=== PATIENT | female | born 1965 | race Caucasian/White ===

== ENCOUNTER 2020-07-26 18:38 | Inpatient (IN) ==
[2020-07-26 20:06] LABS: Basophils # (auto) 0.01 K/uL (0-0.2); Basophils % (auto) 0.1 %; Eosinophils # (auto) 0.07 K/uL (0-0.5); Hematocrit (blood only) 38.7 % (37-47); Hemoglobin 11.9 g/dL (12.0-16.0); Immature Granulocytes # (auto) 0.02 K/uL (0.00-0.02); Immature Granulocytes % (auto) 0.3 %; Lymphocytes # (auto) 1.91 K/uL (1.2-3.4); Lymphocytes % (auto) 26.8 %; Mean Corpuscular Hemoglobin 30.7 pg (25-34); Mean Corpuscular Hgb Conc 30.7 g/dL (32-36); Mean Platelet Volume 10.8 fL (7.4-10.4); Monocytes # (auto) 0.56 K/uL (0.11-0.59); Monocytes % (auto) 7.9 %; Neutrophils # (auto) 4.56 K/uL (1.4-6.5); Neutrophils % (auto) 63.9 %; Platelet Count 177 K/uL (130-400); RDW Coefficient of Variation 12.7 % (11.5-14.5); RDW Standard Deviation 45.9 fL (36.4-46.3); Red Blood Count 3.87 M/uL (4.2-5.4); White Blood Count 7.13 K/uL (4.8-10.8)
[2020-07-26 20:18] LABS: Bilirubin,Total 0.4 mg/dl (0.2-1)
[2020-07-26 20:19] LABS: Alanine Aminotransferase 22 U/L (12-78); Albumin Globulin Ratio 0.8 (0.9-2); Albumin Level 3.8 gm/dl (3.4-5.0); Alkaline Phosphatase 94 U/L (45-117); Aspartate Aminotransferase 13 U/L (15-37); BUN Creatinine Ratio 32.4 (10-20); Blood Urea Nitrogen 26 mg/dl (7-18); Calcium 9.5 mg/dl (8.5-10.1); Carbon Dioxide 42 mmol/L (21-32); Chloride 97 mmol/L (98-107); Creatinine Clr Calc Pharmacy 74.3 ml/min; Est GFR (African American) 93.4 ml/min; Est GFR (Non-African American) 80.6 ml/min; Globulin 4.6 gm/dl (2.5-4.0); Glucose 133 mg/dl (70-99); Potassium 3.3 mmol/L (3.5-5.1); Sodium 140 mmol/L (136-145); Total Protein 8.4 gm/dl (6.4-8.2)
[2020-07-26 20:22] LABS: Partial Thromboplastin Ratio 0.9; Partial Thromboplastin Time 24.9 Seconds (21.0-31.0); Prothrombin Time 10.2 Seconds (9.0-12.0)
--- NOTE | 2020-07-26 21:02 | Emergency Department Note ---
History of Present Illness General Chief complaint: Abnormal Labs/Diagnostic Testing Stated complaint: ABNORMAL LAB WORK Time Seen by Provider: 07/26/20 20:08 Source: patient Mode of arrival: ambulatory Limitations: no limitations History of Present Illness Provider complaint: Abnormal outpatient labs This is a 55-year-old female who comes the emergency department at the recommendation of her outpatient providers due to concern for abnormal outpatient labs drawn last week. Patient with chronic pulmonary issues and does follow with pulmonology. States she had routine blood work performed last week and had seen her regular PCP. Patient denies noting any new or evolving symptoms and states she is otherwise feeling in her usual state of health. Patient does wear chronic oxygen and uses CPAP at night. Patient denies any known sick contact, no recent change in her medications. Patient states she was contacted today and told she needed to come emergently to the emergency room due to an elevated carbon dioxide level. Patient states she has been told that this level was elevated in the past and it is unclear to her why this is now an acute emergency. Patient states there have been no other changes to her home oxygen or CPAP settings. Patient denies any recent respiratory illness or infection. Pt seen during a time of high acuity and national emergency pandemic while wearing PPE. Home Medications Medication Instructions Recorded Confirmed Type Vitron-C 1 tab PO [id number] 05/29/18 07/26/20 History albuterol sulfate 2.5 mg INHALATION Q4 PRN 05/29/18 07/26/20 History ambrisentan 10 mg PO QAM 05/29/18 07/26/20 History ammonium lactate 1 applic TOPICAL BID PRN 05/29/18 07/26/20 History atorvastatin 20 mg PO QAM 05/29/18 07/26/20 History cholecalciferol (vitamin D3) 3 cap PO QAM 05/29/18 07/26/20 History diclofenac sodium [Voltaren] 2 g TOPICAL QID PRN 05/29/18 07/26/20 History docusate sodium [Colace] 100 mg PO QAM 05/29/18 07/26/20 History fluticasone propionate [Flonase 2 spray INTRANASAL DAILY PRN 05/29/18 07/26/20 History Allergy Relief] furosemide 20 mg PO QAM 05/29/18 07/26/20 History hydrocortisone 1 applic TOPICAL BID PRN 05/29/18 07/26/20 History loratadine 10 mg PO QAM 05/29/18 07/26/20 History metoprolol tartrate 25 mg PO BID 05/29/18 07/26/20 History prednisone 5 mg PO QAM 05/29/18 07/26/20 History sildenafil (pulm.hypertension) 20 mg PO TID 05/29/18 07/26/20 History [Revatio] spironolactone 50 mg PO QAM 05/29/18 07/26/20 History triamcinolone acetonide 1 applic TOPICAL BID PRN 05/29/18 07/26/20 History levothyroxine 112 mcg PO DAILYBB 07/26/20 07/26/20 History Allergies Allergy/AdvReac Type Severity Reaction Status Date / Time chlorhexidine Allergy Mild BURNING, Verified 07/26/20 19:42 STINGING, RED RASH aspirin Allergy Unknown AVOIDS Verified 07/26/20 19:42 SECONDARY TO MEDS/MEDICAL CONDITIONS TIGIST Inhibitors AdvReac Intermediate SEVERE Verified 07/26/20 19:42 COUGH NSAIDS (Non-Steroidal AdvReac Unknown AVOIDS Verified 07/26/20 19:42 Anti-Inflamma SECONDARY TO MEDS/MEDICAL CONDITIONS Past Med/Surg History Medical History (Updated 07/28/20 @ 02:02 by Cecilia Leslie DO) Anemia Chronic cor pulmonale Chronic respiratory failure with hypoxia Congestive heart failure GERD (gastroesophageal reflux disease) History of central line-associated bloodstream infection (CLABSI) History of end stage renal disease "acute"--on dialysis for awhile after central line infection, no issues now Hyperlipidemia Hypertension Hypothyroidism Migraine On home oxygen therapy continuous--3-4L during the day and 3L at night Osteoarthritis Polymyositis Poor historian Restrictive lung disease Sleep apnea bipap with 3L Surgical History History of cardiac cath --no stents History of colonoscopy History of tooth extraction Status post insertion of dialysis catheter removed after renal disease resolved Status post PICC central line placement Family History Mother Family history of reaction to anesthesia difficulty waking, nausea/vomiting Family history of diabetes mellitus Sister Family history of diabetes mellitus Social History Smoking Status: Never smoker Second Hand Exposure: No; Hx Alcohol Use: No Hx Substance Use: No Preferred Language: Haitian Communication Ability: Effective Registration Specialist Required: No Beliefs That Will Affect Care: None marital status: Single Current Living Situation: Family Current Living Situation Comment: Lives with father Feels Safe at Home: Yes Assistive Devices: Cane, Glasses and Walker Review of Systems See HPI for pertinent positives & negatives. and A total of 10 systems reviewed and were otherwise negative Physical Exam Vital Signs Vital Signs - 24 hr 07/26/20 18:40 07/26/20 20:25 07/26/20 20:28 Temperature 36.1 C L Temperature Source Temporal Artery Scan Pulse Rate 99 H 99 H 99 H Pulse Rate from SpO2 Sensor 99 H 99 H Respiratory Rate 22 39 H 19 Blood Pressure 141/78 H 125/79 Blood Pressure Mean 99 94 Pulse Oximetry 100 100 100 Oxygen Delivery Method Nasal Cannula Oxygen Flow Rate 2 Sepsis Recent Fever Within 48 Hours No Sepsis New/Unexplained Change in Mental Status No Sepsis Action Taken by Nursing No Action Required 07/26/20 20:30 07/26/20 21:00 Temperature Temperature Source Pulse Rate 97 H 97 H Pulse Rate from SpO2 Sensor 99 H 98 H Respiratory Rate 27 H 21 Blood Pressure Blood Pressure Mean Pulse Oximetry 100 100 Oxygen Delivery Method Oxygen Flow Rate Sepsis Recent Fever Within 48 Hours Sepsis New/Unexplained Change in Mental Status Sepsis Action Taken by Nursing GENERAL: alert, well appearing, well nourished, no distress, non-toxic, oxygen via NC EYE EXAM: normal conjunctiva, PERRL and EOM's grossly intact OROPHARYNX: no exudate, no erythema, lips, buccal mucosa, and tongue normal and mucous membranes are moist NECK: supple, no nuchal rigidity, no adenopathy, non-tender LUNGS: Clear to auscultation. Normal chest wall mechanics, no w/r/r HEART: no murmurs, S1 normal and S2 normal ABDOMEN: abdomen soft, non-tender, normo-active bowel sounds, no masses, no rebound or guarding. BACK: Back is symmetrical on inspection and there is no deformity, no midline tenderness, no CVA tenderness. SKIN: no rashes and no bruising UPPER EXTREMITIES: upper extremities are grossly normal. FROM, nml pulses b/l. LOWER EXTREMITIES: No pitting edema. FROM, nml pulses b/l. NEURO EXAM: Normal sensorium, cranial nerves II-XII grossly intact, normal speech, no gross weakness of arms, no gross weakness of legs. Gross sensation intact. Course Course 2209: Patient updated on ABG and on notes is reviewed through [facility] records. Patient in agreement with suggested plan for admission on BiPAP which was suggested by her landscape architecture teacher. 2220: Discussed with Dr. Coats. Administered Medications Atorvastatin Calcium (Atorvastatin 20 Mg Tab) 20 mg PO [facility] Stop: 08/26/20 08:59 Last Admin: 07/27/20 08:27 Dose: 20 mg Documented by: [id number] Docusate Sodium (Docusate Sodium 100 Mg Cap) 100 mg PO [facility] Stop: 08/26/20 08:59 Last Admin: 07/27/20 08:28 Dose: 100 mg Documented by: [id number] Enoxaparin Sodium (Enoxaparin Inj 40 Mg/0.4 Ml Syr) 40 mg SQ [facility] Stop: 08/26/20 08:59 Last Admin: 07/27/20 08:28 Dose: 40 mg Documented by: [id number] Furosemide (Furosemide 20 Mg Tab) 20 mg PO [facility] Stop: 08/26/20 08:59 Last Admin: 07/27/20 08:27 Dose: 20 mg Documented by: [id number] Levothyroxine Sodium (Levothyroxine Sodium 112 Mcg Tablet) 112 mcg PO DAILYBB [facility] Stop: 08/26/20 06:29 Last Admin: 07/27/20 06:13 Dose: 112 mcg Documented by: [id number] Loratadine (Loratadine 10 Mg Tab) 10 mg PO [facility] Stop: 08/26/20 08:59 Last Admin: 07/27/20 08:27 Dose: 10 mg Documented by: [id number] Metoprolol Tartrate (Metoprolol Tartrate 25 Mg Tab) 25 mg PO BID [facility] Stop: 08/25/20 23:29 Last Admin: 07/27/20 20:52 Dose: 25 mg Documented by: [id number] Admin: 07/27/20 10:35 Dose: Not Given Documented by: [id number] Admin: 07/27/20 00:58 Dose: 25 mg Documented by: [id number] Miscellaneous (Ambrisentan: Order Awaiting Action) 1 ea N/A QS [facility] Stop: 08/26/20 07:59 Last Admin: 07/27/20 22:41 Dose: Not Given Documented by: [id number] Admin: 07/27/20 14:40 Dose: Not Given Documented by: [id number] Admin: 07/27/20 08:06 Dose: Not Given Documented by: [id number] Potassium Chloride (Potassium Chloride Crtab 20 Meq Tabcr) 20 meq PO BID [facility] Stop: 08/26/20 08:59 Last Admin: 07/27/20 20:52 Dose: 20 meq Documented by: [id number] Admin: 07/27/20 08:27 Dose: 20 meq Documented by: [id number] Prednisone (Prednisone 5 Mg Tab) 5 mg PO QAM [facility] Stop: 08/26/20 08:59 Last Admin: 07/27/20 10:37 Dose: 5 mg Documented by: [id number] Sildenafil Citrate (Sildenafil Citrate 20 Mg Tablet) 20 mg PO TID [facility] Stop: 08/26/20 08:59 Last Admin: 07/27/20 20:52 Dose: 20 mg Documented by: [id number] Admin: 07/27/20 15:56 Dose: 20 mg Documented by: [id number] Admin: 07/27/20 08:28 Dose: 20 mg Documented by: [id number] Spironolactone (Spironolactone 25 Mg Tab) 50 mg PO QAM [facility] Stop: 08/26/20 08:59 Last Admin: 07/27/20 08:28 Dose: 50 mg Documented by: [id number] Discontinued Medications Potassium Chloride (Potassium Chloride Crtab 20 Meq Tabcr) 40 meq PO NOW [facility] Stop: 07/26/20 22:32 Last Admin: 07/26/20 23:16 Dose: 40 meq Documented by: [id number] Medical Decision Making Differential Diagnosis Differential diagnoses includes but is not limited to pneumonia, bronchitis, COPD/Asthma exacerbation, pneumothorax, pulmonary embolism, congestive heart failure, acute coronary syndrome Medical Records Attestation: I reviewed the patient's medical records. Home Medications Current Medication List: was personally reviewed by me Laboratory Data Attestation: I reviewed the patient's lab results. Result diagrams: 07/27/20 05:35 07/27/20 05:35 Lab Results 07/26/20 07/26/20 07/26/20 Range/Units 18:55 18:55 18:55 WBC 7.13 (4.8-10.8) K/uL RBC 3.87 L (4.2-5.4) M/uL Hgb 11.9 L (12.0-16.0) g/dL Hct 38.7 (37-47) % MCV 100.0 (80-100) fL MCH 30.7 (25-34) pg MCHC 30.7 L (32-36) g/dL RDW Std Deviation 45.9 (36.4-46.3) fL RDW Coeff of David 12.7 (11.5-14.5) % Plt Count 177 (130-400) K/uL MPV 10.8 H (7.4-10.4) fL Immature Gran % (Auto) 0.3 % Neut % (Auto) 63.9 % Lymph % (Auto) 26.8 % Sullivan % (Auto) 7.9 % Eos % (Auto) 1.0 % Baso % (Auto) 0.1 % Neut # (Auto) 4.56 (1.4-6.5) K/uL Lymph # (Auto) 1.91 (1.2-3.4) K/uL Sullivan # (Auto) 0.56 (0.11-0.59) K/uL Eos # (Auto) 0.07 (0-0.5) K/uL Baso # (Auto) 0.01 (0-0.2) K/uL Immature Gran # (Auto) 0.02 (0.00-0.02) K/uL PT 10.2 (9.0-12.0) Seconds INR 1.0 (0.9-1.1) APTT 24.9 (21.0-31.0) Seconds PTT Ratio 0.9 ABG pH (7.35-7.45) ABG pCO2 (35-46) mmHg ABG pO2 (80-95) mmHg ABG HCO3 (19-24) mmol/L ABG O2 Saturation (90-95) % ABG Base Excess (-9-1.8) mEq/L Slick Test (Pos) Barometric Pressure mm/Hg Oxygen Given Sodium 140 (136-145) mmol/L Potassium 3.3 L (3.5-5.1) mmol/L Chloride 97 L (98-107) mmol/L Carbon Dioxide 42 H* (21-32) mmol/L Anion Gap 1.0 L (3-11) BUN 26 H (7-18) mg/dl Creatinine 0.81 (0.6-1.2) mg/dl Est Cr Clr Drug Dosing 74.3 ml/min Est GFR ( Amer) 93.4 ml/min Est GFR (Non-Af Amer) 80.6 ml/min BUN/Creatinine Ratio 32.4 H (10-20) Glucose 133 H (70-99) mg/dl Estimat Average Glucose mg/dl Hemoglobin A1c (4.5-5.6) % Calcium 9.5 (8.5-10.1) mg/dl Magnesium 2.0 (1.8-2.4) mg/dl Total Bilirubin 0.4 (0.2-1) mg/dl AST 13 L (15-37) U/L ALT 22 (12-78) U/L Alkaline Phosphatase 94 (45-117) U/L NT-Pro-B Natriuret Pep 472 (0-900) pg/ml Total Protein 8.4 H (6.4-8.2) gm/dl Albumin 3.8 (3.4-5.0) gm/dl Globulin 4.6 H (2.5-4.0) gm/dl Albumin/Globulin Ratio 0.8 L (0.9-2) TSH < 0.005 L (0.300-4.500) uIu/ml Free T4 1.21 (0.8-1.6) ng/dl COVID-19 Eval Order SARS-CoV-2 (PCR) (Negative) 07/26/20 07/26/20 07/26/20 Range/Units 18:55 21:38 22:27 WBC (4.8-10.8) K/uL RBC (4.2-5.4) M/uL Hgb (12.0-16.0) g/dL Hct (37-47) % MCV (80-100) fL MCH (25-34) pg MCHC (32-36) g/dL RDW Std Deviation (36.4-46.3) fL RDW Coeff of David (11.5-14.5) % Plt Count (130-400) K/uL MPV (7.4-10.4) fL Immature Gran % (Auto) % Neut % (Auto) % Lymph % (Auto) % Sullivan % (Auto) % Eos % (Auto) % Baso % (Auto) % Neut # (Auto) (1.4-6.5) K/uL Lymph # (Auto) (1.2-3.4) K/uL Sullivan # (Auto) (0.11-0.59) K/uL Eos # (Auto) (0-0.5) K/uL Baso # (Auto) (0-0.2) K/uL Immature Gran # (Auto) (0.00-0.02) K/uL PT (9.0-12.0) Seconds INR (0.9-1.1) APTT (21.0-31.0) Seconds PTT Ratio ABG pH 7.30 L (7.35-7.45) ABG pCO2 87 H (35-46) mmHg ABG pO2 96 H (80-95) mmHg ABG HCO3 42 H (19-24) mmol/L ABG O2 Saturation 96.1 H (90-95) % ABG Base Excess 12.7 H (-9-1.8) mEq/L Slick Test Pos (Pos) Barometric Pressure 724.6 mm/Hg Oxygen Given 2L Sodium (136-145) mmol/L Potassium (3.5-5.1) mmol/L Chloride (98-107) mmol/L Carbon Dioxide (21-32) mmol/L Anion Gap (3-11) BUN (7-18) mg/dl Creatinine (0.6-1.2) mg/dl Est Cr Clr Drug Dosing ml/min Est GFR ( Amer) ml/min Est GFR (Non-Af Amer) ml/min BUN/Creatinine Ratio (10-20) Glucose (70-99) mg/dl Estimat Average Glucose 114 mg/dl Hemoglobin A1c 5.6 (4.5-5.6) % Calcium (8.5-10.1) mg/dl Magnesium (1.8-2.4) mg/dl Total Bilirubin (0.2-1) mg/dl AST (15-37) U/L ALT (12-78) U/L Alkaline Phosphatase (45-117) U/L NT-Pro-B Natriuret Pep (0-900) pg/ml Total Protein (6.4-8.2) gm/dl Albumin (3.4-5.0) gm/dl Globulin (2.5-4.0) gm/dl Albumin/Globulin Ratio (0.9-2) TSH (0.300-4.500) uIu/ml Free T4 (0.8-1.6) ng/dl COVID-19 Eval Order Covid19 at [facility] SARS-CoV-2 (PCR) (Negative) 07/26/20 Range/Units 22:27 WBC (4.8-10.8) K/uL RBC (4.2-5.4) M/uL Hgb (12.0-16.0) g/dL Hct (37-47) % MCV (80-100) fL MCH (25-34) pg MCHC (32-36) g/dL RDW Std Deviation (36.4-46.3) fL RDW Coeff of David (11.5-14.5) % Plt Count (130-400) K/uL MPV (7.4-10.4) fL Immature Gran % (Auto) % Neut % (Auto) % Lymph % (Auto) % Sullivan % (Auto) % Eos % (Auto) % Baso % (Auto) % Neut # (Auto) (1.4-6.5) K/uL Lymph # (Auto) (1.2-3.4) K/uL Sullivan # (Auto) (0.11-0.59) K/uL Eos # (Auto) (0-0.5) K/uL Baso # (Auto) (0-0.2) K/uL Immature Gran # (Auto) (0.00-0.02) K/uL PT (9.0-12.0) Seconds INR (0.9-1.1) APTT (21.0-31.0) Seconds PTT Ratio ABG pH (7.35-7.45) ABG pCO2 (35-46) mmHg ABG pO2 (80-95) mmHg ABG HCO3 (19-24) mmol/L ABG O2 Saturation (90-95) % ABG Base Excess (-9-1.8) mEq/L Slick Test (Pos) Barometric Pressure mm/Hg Oxygen Given Sodium (136-145) mmol/L Potassium (3.5-5.1) mmol/L Chloride (98-107) mmol/L Carbon Dioxide (21-32) mmol/L Anion Gap (3-11) BUN (7-18) mg/dl Creatinine (0.6-1.2) mg/dl Est Cr Clr Drug Dosing ml/min Est GFR ( Amer) ml/min Est GFR (Non-Af Amer) ml/min BUN/Creatinine Ratio (10-20) Glucose (70-99) mg/dl Estimat Average Glucose mg/dl Hemoglobin A1c (4.5-5.6) % Calcium (8.5-10.1) mg/dl Magnesium (1.8-2.4) mg/dl Total Bilirubin (0.2-1) mg/dl AST (15-37) U/L ALT (12-78) U/L Alkaline Phosphatase (45-117) U/L NT-Pro-B Natriuret Pep (0-900) pg/ml Total Protein (6.4-8.2) gm/dl Albumin (3.4-5.0) gm/dl Globulin (2.5-4.0) gm/dl Albumin/Globulin Ratio (0.9-2) TSH (0.300-4.500) uIu/ml Free T4 (0.8-1.6) ng/dl COVID-19 Eval Order SARS-CoV-2 (PCR) NEGATIVE (Negative) Imaging Data My Impression: X-ray: I interpreted the following studies. Chest: A single view study of the chest was reviewed and was negative for cardiomegaly, focal infiltrate, effusion, pulmonary edema, or wide mediastinum. MDM Narrative This is a 55-year female who presents due to abnormal outpatient labs. Patient with several chronic and ongoing medical problems for which she does follow with a landscape architecture teacher in addition to her PCP. I did review her outpatient chemistry panel from last week and she does have a chronically elevated carbon dioxide level. With assistance of case management and obtaining records, I was able to review prior labs as well as notes from her PCP and an accompanying note from her landscape architecture teacher Dr. Darby. According to those records it was recommended that she come to the emergency room and be placed on BiPAP and a repeat ABG obtained. We did obtain an ABG here and it did show an elevated PCO2. Patient denies any new or evolving symptoms, I did offer her additional inpatient treatment and evaluation given the recommendation of her landscape architecture teacher versus going home and close outpatient follow-up. Patient agreement with plan to initiate BiPAP therapy here. I did call RT and discussed with him the recommendations made by the landscape architecture teacher. Case discussed with hospitalist for additional evaluation and management. Covid swab added and chest x-ray performed as a precaution which are unremarkable. Other labs reassuring and chronic in appearance. Impression & Plan Acute and chronic respiratory failure with hypercapnia, Chronic respiratory failure with hypoxia, on home O2 therapy Discharge Plan Visit Data Chief Complaint: Abnormal Labs/Diagnostic Testing Stated Complaint: ABNORMAL LAB WORK ED Provider: Cecilia Leslie Discharge Problem: Acute and chronic respiratory failure with hypercapnia, Chronic respiratory failure with hypoxia, on home O2 therapy Patient Disposition: Admitted As Inpatient Discharge Instructions Interventions: ED Discharge Assessment Last Done: 07/27/20 01:20
[2020-07-26 21:57] LABS: Allen Test Pos (Pos); Base Excess ABG 12.7 mEq/L (-9-1.8); HCO3 ABG 42 mmol/L (19-24); Oxygen Saturation ABG 96.1 % (90-95); PCO2 ABG 87 mmHg (35-46); PO2 ABG 96 mmHg (80-95)
[2020-07-26] MEDS ORDERED: POTASSIUM CHLORIDE CRTAB 20 MEQ TABCR PO STA (22:31)
--- NOTE | 2020-07-26 23:34 | History & Physical Report ---
Date of Service July 26, 2020 Assessment & Plan (1) Acute and chronic respiratory failure with hypercapnia: hx chronic hypoxemic/hypercapnic respiratory failure secondary to pulmonary arterial hypertension on the Letairis/Revatio restrictive lung disease/history diaphragm paralysis on home O2 and nocturnal BiPAP Marked respiratory acidosis on outpatient VBG requested by patient [facility] [place] pickled fruit maker almost 2 weeks ago. Patient pulmonary symptoms at baseline. hx 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 steroid therapy Rathke's cleft cyst as per records, stable on recent outpatient MRI chronic anemia, hemoglobin at baseline hypothyroidism, low TSH from outpatient blood work hyperlipidemia on statin Rx prediabetes/steroid-induced hyperglycemia, hemoglobin A1c of 6 from November 2019 Hypokalemia secondary diuretic Rx OBS Medical telemetry BiPAP (13/5 at 2L as per patient sweet pickled fruit maker (Dr. Bowie) conversation with ED provider) Recheck ABG in a.m. and relay to sweet pickled fruit maker. Replace potassium Recheck TSH, update hemoglobin A1c DVT prophylaxis. Lovenox subcu Full code Text document was generated using [employer] voice recognition software. It may contain grammatical or spelling errors. Kindly contact undersigned for clarification of any documentation item in question. History of Present Illness To be Chief Complaint: Abnormal blood work Primary Care Provider: Willi Torres MD History obtained from patient and records. Medical history significant for chronic hypoxemic/hypercapnic respiratory failure secondary to pulmonary arterial hypertension on the Letairis/Revatio on home O2 and nocturnal BiPAP, 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 steroid therapy, restrictive lung disease/history diaphragm paralysis, Rathke's cleft cyst as per records, chronic anemia (baseline hemoglobin of 11 ), hypothyroidism, hyperlipidemia, prediabetes. Patient met with [facility] sweet pickled fruit maker on televideo follow-up 3 weeks ago. Uptrending bicarb noted on outpatient blood work. Outpatient VBG requested by specialist. Outpatient VBG done at [facility] 10 days ago showed pH of 7.23, PCO2 113. Patient denies unusual chest pain, S OB, cough symptoms. Usual fluid retention symptoms. Patient directed to ER by outpatient providers. BiPAP to be initiated at the ER as per [facility] sweet pickled fruit maker. Medical History as above Surgical History : Tracheostomy, vascular procedures Family History : Breast cancer, DM, heart disease Personal/Social history : Non-smoker, no EtOH intake, disabled Allergies Allergy/AdvReac Type Severity Reaction Status Date / Time chlorhexidine Allergy Mild BURNING, Verified 07/26/20 19:42 STINGING, RED RASH aspirin Allergy Unknown AVOIDS Verified 07/26/20 19:42 SECONDARY TO MEDS/MEDICAL CONDITIONS TIGIST Inhibitors AdvReac Intermediate SEVERE Verified 07/26/20 19:42 COUGH NSAIDS (Non-Steroidal AdvReac Unknown AVOIDS Verified 07/26/20 19:42 Anti-Inflamma SECONDARY TO MEDS/MEDICAL CONDITIONS Home Medications Medication Instructions Recorded Confirmed Type Vitron-C 1 tab PO 3XWK 05/29/18 07/26/20 History albuterol sulfate 2.5 mg INHALATION Q4 PRN 05/29/18 07/26/20 History ambrisentan 10 mg PO QAM 05/29/18 07/26/20 History ammonium lactate 1 applic TOPICAL BID PRN 05/29/18 07/26/20 History atorvastatin 20 mg PO QAM 05/29/18 07/26/20 History cholecalciferol (vitamin D3) 3 cap PO QAM 05/29/18 07/26/20 History diclofenac sodium [Voltaren] 2 g TOPICAL QID PRN 05/29/18 07/26/20 History docusate sodium [Colace] 100 mg PO QAM 05/29/18 07/26/20 History fluticasone propionate [Flonase 2 spray INTRANASAL DAILY PRN 05/29/18 07/26/20 History Allergy Relief] furosemide 20 mg PO QAM 05/29/18 07/26/20 History hydrocortisone 1 applic TOPICAL BID PRN 05/29/18 07/26/20 History loratadine 10 mg PO QAM 05/29/18 07/26/20 History metoprolol tartrate 25 mg PO BID 05/29/18 07/26/20 History prednisone 5 mg PO QAM 05/29/18 07/26/20 History sildenafil (pulm.hypertension) 20 mg PO TID 05/29/18 07/26/20 History [Revatio] spironolactone 50 mg PO QAM 05/29/18 07/26/20 History triamcinolone acetonide 1 applic TOPICAL BID PRN 05/29/18 07/26/20 History levothyroxine 112 mcg PO DAILYBB 07/26/20 07/26/20 History Past Med/Surg History Medical History (Updated 07/27/20 @ 07:29 by Neftaly León MD) Anemia Chronic cor pulmonale Chronic respiratory failure with hypoxia Congestive heart failure GERD (gastroesophageal reflux disease) History of central line-associated bloodstream infection (CLABSI) History of end stage renal disease "acute"--on dialysis for awhile after central line infection, no issues now Hyperlipidemia Hypertension Hypothyroidism Migraine On home oxygen therapy continuous--3-4L during the day and 3L at night Osteoarthritis Polymyositis Poor historian Restrictive lung disease Sleep apnea bipap with 3L Surgical History History of cardiac cath --no stents History of colonoscopy History of tooth extraction Status post insertion of dialysis catheter removed after renal disease resolved Status post PICC central line placement Family History Mother Family history of reaction to anesthesia difficulty waking, nausea/vomiting Family history of diabetes mellitus Sister Family history of diabetes mellitus Social History Smoking Status: Never smoker Second Hand Exposure: No; Hx Alcohol Use: No Hx Substance Use: No Preferred Language: South African Communication Ability: Effective Lead Developer Required: No Beliefs That Will Affect Care: None Current Living Situation: Family Current Living Situation Comment: Lives with father Feels Safe at Home: Yes Assistive Devices: Cane, Glasses and Walker Review of Systems Review of Systems: As per HPI, all 10 systems reviewed, all other ROS negative Physical Exam Physical Exam: GENERAL: Comfortable, obese, no respiratory distress SKIN: Normal color, warm HEENT: Bespectacled, [place] palpebral conjunctivae, no ptosis, moist buccal mucosa, nasal cannula in place NECK : Supple, short neck, no tenderness CHEST : Decreased breath sounds, no tenderness HEART : RRR, no obvious murmurs ABDOMEN: Some distention, nontender EXTREMITIES : Bilateral LE swelling, no LE tenderness, no other conspicuous deformities noted NEUROLOGIC : Coherent, no facial asymmetry, no other gross focality Results & Data Results & Data ([facility]) Vital Signs (Past 12 Hours) Vital Signs Temp Pulse Resp BP Pulse Ox 07/26/20 21:00 97 H 21 100 07/26/20 20:30 97 H 27 H 100 07/26/20 20:28 99 H 19 100 07/26/20 20:25 99 H 39 H 125/79 100 07/26/20 18:40 36.1 C L 99 H 22 141/78 H 100 Laboratory Results Laboratory Results WBC 7.13 K/uL (4.8-10.8) 07/26/20 18:55 RBC 3.87 M/uL (4.2-5.4) L 07/26/20 18:55 Hgb 11.9 g/dL (12.0-16.0) L 07/26/20 18:55 Hct 38.7 % (37-47) 07/26/20 18:55 MCV 100.0 fL (80-100) 07/26/20 18:55 MCH 30.7 pg (25-34) 07/26/20 18:55 MCHC 30.7 g/dL (32-36) L 07/26/20 18:55 RDW Std Deviation 45.9 fL (36.4-46.3) 07/26/20 18:55 RDW Coeff of David 12.7 % (11.5-14.5) 07/26/20 18:55 Plt Count 177 K/uL (130-400) 07/26/20 18:55 MPV 10.8 fL (7.4-10.4) H 07/26/20 18:55 Immature Gran % (Auto) 0.3 % 07/26/20 18:55 Neut % (Auto) 63.9 % 07/26/20 18:55 Lymph % (Auto) 26.8 % 07/26/20 18:55 [place] % (Auto) 7.9 % 07/26/20 18:55 Eos % (Auto) 1.0 % 07/26/20 18:55 Baso % (Auto) 0.1 % 07/26/20 18:55 Neut # (Auto) 4.56 K/uL (1.4-6.5) 07/26/20 18:55 Lymph # (Auto) 1.91 K/uL (1.2-3.4) 07/26/20 18:55 [place] # (Auto) 0.56 K/uL (0.11-0.59) 07/26/20 18:55 Eos # (Auto) 0.07 K/uL (0-0.5) 07/26/20 18:55 Baso # (Auto) 0.01 K/uL (0-0.2) 07/26/20 18:55 Immature Gran # (Auto) 0.02 K/uL (0.00-0.02) 07/26/20 18:55 PT 10.2 Seconds (9.0-12.0) 07/26/20 18:55 INR 1.0 (0.9-1.1) 07/26/20 18:55 APTT 24.9 Seconds (21.0-31.0) 07/26/20 18:55 PTT Ratio 0.9 07/26/20 18:55 ABG pH 7.30 (7.35-7.45) L 07/26/20 21:38 ABG pCO2 87 mmHg (35-46) H 07/26/20 21:38 ABG pO2 96 mmHg (80-95) H 07/26/20 21:38 ABG HCO3 42 mmol/L (19-24) H 07/26/20 21:38 ABG O2 Saturation 96.1 % (90-95) H 07/26/20 21:38 ABG Base Excess 12.7 mEq/L (-9-1.8) H 07/26/20 21:38 Slick Test Pos (Pos) 07/26/20 21:38 Barometric Pressure 724.6 mm/Hg 07/26/20 21:38 Oxygen Given 2L 07/26/20 21:38 Sodium 140 mmol/L (136-145) 07/26/20 18:55 Potassium 3.3 mmol/L (3.5-5.1) L 07/26/20 18:55 Chloride 97 mmol/L (98-107) L 07/26/20 18:55 Carbon Dioxide 42 mmol/L (21-32) H* 07/26/20 18:55 Anion Gap 1.0 (3-11) L 07/26/20 18:55 BUN 26 mg/dl (7-18) H 07/26/20 18:55 Creatinine 0.81 mg/dl (0.6-1.2) 07/26/20 18:55 Est Cr Clr Drug Dosing 74.3 ml/min 07/26/20 18:55 Est GFR ( Amer) 93.4 ml/min 07/26/20 18:55 Est GFR (Non-Af Amer) 80.6 ml/min 07/26/20 18:55 BUN/Creatinine Ratio 32.4 (10-20) H 07/26/20 18:55 Glucose 133 mg/dl (70-99) H 07/26/20 18:55 Calcium 9.5 mg/dl (8.5-10.1) 07/26/20 18:55 Magnesium 2.0 mg/dl (1.8-2.4) 07/26/20 18:55 Total Bilirubin 0.4 mg/dl (0.2-1) 07/26/20 18:55 AST 13 U/L (15-37) L 07/26/20 18:55 ALT 22 U/L (12-78) 07/26/20 18:55 Alkaline Phosphatase 94 U/L (45-117) 07/26/20 18:55 Total Protein 8.4 gm/dl (6.4-8.2) H 07/26/20 18:55 Albumin 3.8 gm/dl (3.4-5.0) 07/26/20 18:55 Globulin 4.6 gm/dl (2.5-4.0) H 07/26/20 18:55 Albumin/Globulin Ratio 0.8 (0.9-2) L 07/26/20 18:55 COVID-19 Eval Order Covid19 at [facility] 07/26/20 22:27 SARS-CoV-2 (PCR) NEGATIVE (Negative) 07/26/20 22:27 Diagnostic Findings Chest x-ray as per my interpretation cardiomegaly, congestion
[2020-07-27 00:11] LABS: NT Pro B Type Natriuretic Pept 472 pg/ml (0-900); Thyroid Stimulating Hormone < 0.005 uIu/ml (0.300-4.500)
[2020-07-27 00:31] LABS: T4 Free Thyroxine 1.21 ng/dl (0.8-1.6)
[2020-07-27] MEDS: METOPROLOL TARTRATE 25 MG TAB PO SCH ×3 (00:58→20:52)
[2020-07-27] MEDS ORDERED: ALBUT/IPRATROP 3MG/0.5MG NEB 3 ML VIAL NEB PRN (01:46)
[2020-07-27] MEDS ORDERED: traMADol HCL 50 MG TABLET PO PRN (02:10)
[2020-07-27] MEDS ORDERED: XOPENEX/ATROVENT 1.25mg/0.5MG NEB COMBO NEB PRN (02:10)
[2020-07-27] MEDS ORDERED: IPRATROPIUM BROMIDE NEB SOLN 0.02% 2.5 ML VIAL INH PRN (02:10)
[2020-07-27] MEDS ORDERED: LEVALBUTEROL 1.25MG/0.5ML NEB INH PRN (02:10)
[2020-07-27] MEDS ORDERED: PROMETHAZINE HCL 12.5 MG in SODIUM CHLORIDE 0.9% 50 ML IV PRN (02:10)
[2020-07-27] MEDS ORDERED: FLUTICASONE PROPIONATE NA SPR 16 GM BTL PRN (02:10)
[2020-07-27 05:55] LABS: Base Excess ABG 12.7 mEq/L (-9-1.8); HCO3 ABG 41 mmol/L (19-24); PCO2 ABG 74 mmHg (35-46); PO2 ABG 114 mmHg (80-95); pH ABG 7.36 (7.35-7.45)
[2020-07-27 05:56] LABS: Allen Test POS (Pos)
[2020-07-27] MEDS: LEVOTHYROXINE SODIUM 112 MCG TABLET PO SCH (06:13)
[2020-07-27 06:23] LABS: Estimated Average Glucose 114 mg/dl; Hemoglobin A1C 5.6 % (4.5-5.6)
[2020-07-27 06:26] LABS: Eosinophils % (auto) 1.5 %; Hematocrit (blood only) 36.1 % (37-47); Immature Granulocytes # (auto) 0.01 K/uL (0.00-0.02); Immature Granulocytes % (auto) 0.2 %; Lymphocytes # (auto) 1.88 K/uL (1.2-3.4); Lymphocytes % (auto) 29.1 %; Mean Corpuscular Hemoglobin 30.9 pg (25-34); Mean Corpuscular Hgb Conc 30.5 g/dL (32-36); Mean Corpuscular Volume 101.4 fL (80-100); Mean Platelet Volume 10.7 fL (7.4-10.4); Monocytes # (auto) 0.51 K/uL (0.11-0.59); Monocytes % (auto) 7.9 %; Neutrophils # (auto) 3.97 K/uL (1.4-6.5); Neutrophils % (auto) 61.3 %; Platelet Count 159 K/uL (130-400); RDW Coefficient of Variation 12.6 % (11.5-14.5); RDW Standard Deviation 46.2 fL (36.4-46.3); Red Blood Count 3.56 M/uL (4.2-5.4); White Blood Count 6.47 K/uL (4.8-10.8)
[2020-07-27 07:07] LABS: BUN Creatinine Ratio 38.4 (10-20); Calcium 9.1 mg/dl (8.5-10.1); Creatinine Clr Calc Pharmacy 102.1 ml/min; Est GFR (African American) 117.9 ml/min; Est GFR (Non-African American) 101.7 ml/min; Potassium 3.9 mmol/L (3.5-5.1)
[2020-07-27] MEDS ORDERED: ACETAMINOPHEN 325 MG TAB PO PRN (07:16)
--- NOTE | 2020-07-27 08:18 | XRay Report ---
SINGLE VIEW CHEST CLINICAL HISTORY: Dyspnea. FINDINGS: 2 AP, portable, upright chest radiographs are compared to study dated 08/10/2015. The heart i s enlarged. There is prominence of the pulmonary vasculature. There is chronic elevation of the right hemidiaphragm with atelectasis of the right lower lung. Atelectasis is also seen at the left lung ba se. No airspace consolidation or large pleural effusion is identified. No pneumothorax is seen. The s keletal structures are osteopenic. The bony thorax is grossly intact. IMPRESSION: 1. Cardiomegaly with prominence of the pulmonary vasculature. Correlate clinically for evidence of mi ld congestive change. 2. No airspace consolidation or large pleural effusion is identified. ACT 112: Negative or not required by law. Electronically signed by: Philippe Navarro M.D. 07/27/2020 8:17 AM
[2020-07-27] MEDS: LORATADINE 10 MG TAB PO SCH (08:27)
[2020-07-27] MEDS: ATORVASTATIN 20 MG TAB PO SCH (08:27)
[2020-07-27] MEDS: FUROSEMIDE 20 MG TAB PO SCH (08:27)
[2020-07-27] MEDS: POTASSIUM CHLORIDE CRTAB 20 MEQ TABCR PO SCH ×2 (08:27→20:52)
[2020-07-27] MEDS: ENOXAPARIN INJ 40 MG/0.4 ML SYR SQ SCH (08:28)
[2020-07-27] MEDS: SILDENAFIL CITRATE 20 MG TABLET PO SCH ×3 (08:28→20:52)
[2020-07-27] MEDS: DOCUSATE SODIUM 100 MG CAP PO SCH (08:28)
[2020-07-27] MEDS: SPIRONOLACTONE 25 MG TAB PO SCH (08:28)
--- NOTE | 2020-07-27 10:10 | Hospitalist Progress Note ---
Date of Service July 27, 2020 Assessment & Plan (1) Acute and chronic respiratory failure with hypercapnia: hx chronic hypoxemic/hypercapnic respiratory failure secondary to pulmonary arterial hypertension on the Letairis/Revatio restrictive lung disease/history diaphragm paralysis on home O2 and nocturnal BiPAP-She doesn't know how to adjust settings and sometimes falls asleep wo being on BIPAP Marked respiratory acidosis on outpatient VBG requested by [place] [facility] [place] branding machine operator almost 2 weeks ago. Patient pulmonary symptoms at baseline. hx 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 steroid therapy Rathke's cleft cyst as per records, stable on recent outpatient MRI chronic anemia, hemoglobin at baseline hypothyroidism, low TSH from outpatient blood work hyperlipidemia on statin Rx prediabetes/steroid-induced hyperglycemia, hemoglobin A1c of 6 from November 2019 Hypokalemia secondary diuretic Rx OBS Medical telemetry BiPAP (17/06 at 2L as per patient branding machine operator (Dr. Muna Bowie) conversation with ED provider) ABG relayed to branding machine operator. PCO2 87-->74 Replace potassium DVT prophylaxis. Lovenox subcu Full code ROS-No Headache, No Visual Changes, No Nausea, No Vomiting, No Fever, No Chills, No Neck Pain or Stiffness, No Chest Pain, No Palpitations, No SOB, No SILVERMAN, No Cough, No Sputum, No Wheezing, No Abdominal Pain, No Diarrhea, No Hematemesis, No Hemoptysis, No Unexpected Weight Loss, No Flank pain, No Melena, No Hematochezia, No Frequency, No Urgency, No Burning, No Hematuria, No Rashes, No Diaphoresis. Appetite is Normal Physical Exam Gen-AAO x 3, NAD, Afebrile Head-NCAT, EOMI, PERRLA, Anicteric Sclera, No Posterior Pharyngeal Erythema Neck-Supple, No JVD, No Thyromegaly, No Masses, No LAD, No Bruits Lungs-Clear to Auscultation Bilaterally, No Rales, No Rhonchi, No Wheezing, No Crepitus Chest-No S4, +S1, +S2, No S3, No Murmurs, No Rubs, No Gallops, No Ectopy Abdomen-Soft, Bowel Sounds Present, Non Tender, Non Distended, No Hepatomegaly, No Splenomegaly, No Palpable Masses, No Rebound, No Rigidity, No Guarding Musculoskeletal-Full Range of Motion Bilaterally, No CVAT Extremities-No Cyanosis, No Clubbing, No Edema Nuero-Cranial Nerves II-XII grossly intact, Motor WNL, DTRs WNL, Strength WNL, Non Focal Psych-Normal Mood Admission and Anticipated Discharge Date Admission Date: July 26, 2020 Results & Data Results & Data ([facility]) Vital Signs (Past 12 Hours) Vital Signs Temp Pulse Pulse Resp BP BP BP 07/27/20 09:48 81 07/27/20 07:18 37.3 C 82 22 97/57 L 07/27/20 05:09 36.1 C L 81 18 91/54 L 07/27/20 04:47 76 23 07/27/20 02:16 36.6 C 78 87 18 124/71 07/27/20 01:29 78 30 H 07/27/20 01:01 101 H 26 H 123/68 07/27/20 01:00 99 H 24 07/27/20 00:31 100 H 26 H 07/27/20 00:30 99 H 25 H 129/79 07/27/20 00:00 96 H 22 106/71 07/26/20 23:43 98 H 25 H 07/26/20 23:30 97 H 21 127/80 07/26/20 23:20 97 H 24 143/86 H 07/26/20 23:00 98 H 25 H Pulse Ox 07/27/20 09:48 07/27/20 07:18 95 07/27/20 05:09 88 L 07/27/20 04:47 96 07/27/20 02:16 97 07/27/20 01:29 98 07/27/20 01:01 94 07/27/20 01:00 07/27/20 00:31 100 07/27/20 00:30 100 07/27/20 00:00 97 07/26/20 23:43 97 07/26/20 23:30 07/26/20 23:20 98 07/26/20 23:00 100
[2020-07-27] MEDS: predniSONE 5 MG TAB PO SCH (10:37)
[2020-07-28] MEDS: LEVOTHYROXINE SODIUM 112 MCG TABLET PO SCH (05:31)
[2020-07-28 08:04] LABS: Hematocrit (blood only) 36.6 % (37-47); Hemoglobin 11.1 g/dL (12.0-16.0); Mean Corpuscular Hemoglobin 31.2 pg (25-34); Mean Corpuscular Hgb Conc 30.3 g/dL (32-36); Mean Corpuscular Volume 102.8 fL (80-100); Mean Platelet Volume 10.5 fL (7.4-10.4); Platelet Count 145 K/uL (130-400); RDW Coefficient of Variation 12.6 % (11.5-14.5); RDW Standard Deviation 47.4 fL (36.4-46.3); Red Blood Count 3.56 M/uL (4.2-5.4); White Blood Count 5.73 K/uL (4.8-10.8)
[2020-07-28 08:06] LABS: Base Excess ABG 11.2 mEq/L (-9-1.8); HCO3 ABG 41 mmol/L (19-24); Oxygen Saturation ABG 94.7 % (90-95); PCO2 ABG 83 mmHg (35-46); PO2 ABG 81 mmHg (80-95); pH ABG 7.31 (7.35-7.45)
[2020-07-28 08:14] LABS: Allen Test Pos (Pos)
[2020-07-28 08:38] LABS: BUN Creatinine Ratio 30.5 (10-20); Calcium 9.3 mg/dl (8.5-10.1); Creatinine Clr Calc Pharmacy 95.7 ml/min; Est GFR (African American) 115.4 ml/min; Est GFR (Non-African American) 99.6 ml/min; Potassium 4.1 mmol/L (3.5-5.1)
[2020-07-28] MEDS: AMBRISENTAN PO SCH (09:00)
[2020-07-28] MEDS: POTASSIUM CHLORIDE CRTAB 20 MEQ TABCR PO SCH ×2 (09:23→20:51)
[2020-07-28] MEDS: SILDENAFIL CITRATE 20 MG TABLET PO SCH ×3 (09:24→20:52)
[2020-07-28] MEDS: LORATADINE 10 MG TAB PO SCH (09:24)
[2020-07-28] MEDS: ATORVASTATIN 20 MG TAB PO SCH (09:24)
[2020-07-28] MEDS: DOCUSATE SODIUM 100 MG CAP PO SCH (09:24)
[2020-07-28] MEDS: predniSONE 5 MG TAB PO SCH (09:24)
[2020-07-28] MEDS: ENOXAPARIN INJ 40 MG/0.4 ML SYR SQ SCH (09:25)
[2020-07-28] MEDS: METOPROLOL TARTRATE 25 MG TAB PO SCH ×2 (09:25→20:52)
[2020-07-28] MEDS: SPIRONOLACTONE 25 MG TAB PO SCH (10:05)
[2020-07-28] MEDS: FUROSEMIDE 20 MG TAB PO SCH (10:25)
--- NOTE | 2020-07-28 12:51 | Hospitalist Progress Note ---
Date of Service July 28, 2020 Assessment & Plan (1) Acute and chronic respiratory failure with hypercapnia: hx chronic hypoxemic/hypercapnic respiratory failure secondary to pulmonary arterial hypertension on the Letairis/Revatio restrictive lung disease/history diaphragm paralysis on home O2 and nocturnal BiPAP-She doesn't know how to adjust settings and sometimes falls asleep wo being on BIPAP Marked respiratory acidosis on outpatient VBG requested by patient [facility] [place] computational geneticist almost 2 weeks ago. Patient pulmonary symptoms at baseline. hx 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 steroid therapy Rathke's cleft cyst as per records, stable on recent outpatient MRI chronic anemia, hemoglobin at baseline hypothyroidism, low TSH from outpatient blood work hyperlipidemia on statin Rx prediabetes/steroid-induced hyperglycemia, hemoglobin A1c of 6 from November 2019 Hypokalemia secondary diuretic Rx Change to inpatient, Increase BIPAP to 18/9 ABG at 1700 Medical telemetry ABG relayed to computational geneticist. Replace potassium Vit D DVT prophylaxis. Lovenox subcu Full code ROS-No Headache, No Visual Changes, No Nausea, No Vomiting, No Fever, No Chills, No Neck Pain or Stiffness, No Chest Pain, No Palpitations, No SOB, No SILVERMAN, No C ough, No Sputum, No Wheezing, No Abdominal Pain, No Diarrhea, No Hematemesis, No Hemoptysis, No Unexpected Weight Loss, No Flank pain, No Melena, No Hematochezia, No Frequency, No Urgency, No Burning, No Hematuria, No Rashes, No Diaphoresis. Appetite is Normal Physical Exam Gen-AAO x 3, NAD, Afebrile Head-NCAT, EOMI, PERRLA, Anicteric Sclera, No Posterior Pharyngeal Erythema Neck-Supple, No JVD, No Thyromegaly, No Masses, No LAD, No Bruits Lungs-Clear to Auscultation Bilaterally, No Rales, No Rhonchi, No Wheezing, No Crepitus Chest-No S4, +S1, +S2, No S3, No Murmurs, No Rubs, No Gallops, No Ectopy Abdomen-Soft, Bowel Sounds Present, Non Tender, Non Distended, No Hepatomegaly, No Splenomegaly, No Palpable Masses, No Rebound, No Rigidity, No Guarding Musculoskeletal-Full Range of Motion Bilaterally, No CVAT Extremities-No Cyanosis, No Clubbing, No Edema Nuero-Cranial Nerves II-XII grossly intact, Motor WNL, DTRs WNL, Strength WNL, Non Focal Psych-Normal Mood Admission and Anticipated Discharge Date Admission Date: July 28, 2020 Results & Data Results & Data ([facility]) Vital Signs (Past 12 Hours) Vital Signs Temp Pulse Pulse Resp BP Pulse Ox 07/28/20 11:21 36.8 C 67 18 95/60 L 98 07/28/20 10:22 71 24 95 07/28/20 09:30 90 107/70 07/28/20 08:00 36.8 C 86 18 97/66 L 98 07/28/20 07:00 76 07/28/20 03:00 36.5 C 81 20 131/83 100 07/28/20 02:49 87 15 90
[2020-07-28] MEDS: CHOLECALCIFEROL 1,000 UNITS 25 MCG TAB PO SCH (14:36)
[2020-07-28 17:38] LABS: HCO3 ABG 40 mmol/L (19-24); Oxygen Saturation ABG 94.3 % (90-95); PCO2 ABG 63 mmHg (35-46); PO2 ABG 69 mmHg (80-95); pH ABG 7.42 (7.35-7.45)
[2020-07-28 17:39] LABS: Allen Test Pos (Pos)
[2020-07-29] MEDS: LEVOTHYROXINE SODIUM 112 MCG TABLET PO SCH (05:30)
[2020-07-29] MEDS: FUROSEMIDE 20 MG TAB PO SCH (08:41)
[2020-07-29] MEDS: SILDENAFIL CITRATE 20 MG TABLET PO SCH ×2 (08:41→13:44)
[2020-07-29] MEDS: ATORVASTATIN 20 MG TAB PO SCH (08:41)
[2020-07-29] MEDS: METOPROLOL TARTRATE 25 MG TAB PO SCH (08:41)
[2020-07-29] MEDS: POTASSIUM CHLORIDE CRTAB 20 MEQ TABCR PO SCH (08:41)
[2020-07-29] MEDS: LORATADINE 10 MG TAB PO SCH (08:41)
[2020-07-29] MEDS: predniSONE 5 MG TAB PO SCH (08:42)
[2020-07-29] MEDS: DOCUSATE SODIUM 100 MG CAP PO SCH (08:42)
[2020-07-29] MEDS: CHOLECALCIFEROL 1,000 UNITS 25 MCG TAB PO SCH (08:42)
[2020-07-29] MEDS: SPIRONOLACTONE 25 MG TAB PO SCH (08:42)
[2020-07-29] MEDS: ENOXAPARIN INJ 40 MG/0.4 ML SYR SQ SCH (08:43)
[2020-07-29 08:49] LABS: Hematocrit (blood only) 36.6 % (37-47); Hemoglobin 11.5 g/dL (12.0-16.0); Mean Corpuscular Hemoglobin 31.3 pg (25-34); Mean Corpuscular Hgb Conc 31.4 g/dL (32-36); Mean Corpuscular Volume 99.7 fL (80-100); Mean Platelet Volume 10.2 fL (7.4-10.4); Platelet Count 158 K/uL (130-400); RDW Coefficient of Variation 12.4 % (11.5-14.5); RDW Standard Deviation 45.3 fL (36.4-46.3); Red Blood Count 3.67 M/uL (4.2-5.4); White Blood Count 6.15 K/uL (4.8-10.8)
[2020-07-29] MEDS: AMBRISENTAN PO SCH (08:49)
[2020-07-29 08:51] LABS: Base Excess ABG 10.6 mEq/L (-9-1.8); HCO3 ABG 37 mmol/L (19-24); Oxygen Saturation ABG 96.8 % (90-95); PCO2 ABG 55 mmHg (35-46); PO2 ABG 91 mmHg (80-95); pH ABG 7.44 (7.35-7.45)
[2020-07-29 08:52] LABS: Allen Test Pos (Pos)
[2020-07-29 09:21] LABS: BUN Creatinine Ratio 22.5 (10-20); Calcium 9.7 mg/dl (8.5-10.1); Creatinine Clr Calc Pharmacy 66.4 ml/min; Est GFR (African American) 82.3 ml/min; Potassium 3.8 mmol/L (3.5-5.1)
--- NOTE | 2020-07-29 09:33 | Hospitalist Progress Note ---
Date of Service July 29, 2020 Assessment & Plan (1) Acute and chronic respiratory failure with hypercapnia: hx chronic hypoxemic/hypercapnic respiratory failure secondary to pulmonary arterial hypertension on the Letairis/Revatio restrictive lung disease/history diaphragm paralysis on home O2 and nocturnal BiPAP-She doesn't know how to adjust settings and sometimes falls asleep wo being on BIPAP Marked respiratory acidosis on outpatient VBG requested by patient [facility] [place] hvac project manager almost 2 weeks ago. Patient pulmonary symptoms at baseline. hx 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 steroid therapy Rathke's cleft cyst as per records, stable on recent outpatient MRI chronic anemia, hemoglobin at baseline hypothyroidism, low TSH from outpatient blood work hyperlipidemia on statin Rx prediabetes/steroid-induced hyperglycemia, hemoglobin A1c of 6 from November 2019 Hypokalemia secondary diuretic Rx Change to inpatient, Increase BIPAP to 18/9 ABG PCO2 55 ABG relayed to hvac project manager. Replace potassium Vit D DVT prophylaxis. Lovenox subcu, DC today or am and reprogram BIPAP machine to 2/9 Full code ROS-No Headache, No Visual Changes, No Nausea, No Vomiting, No Fever, No Chills, No Neck Pain or Stiffness, No Chest Pain, No Palpitations, No SOB, No SILVERMAN, No Cough, No Sputum, No Wheezing, No Abdominal Pain, No Diarrhea, No Hematemesis, No Hemoptysis, No Unexpected Weight Loss, No Flank pain, No Melena, No Hematochezia, No Frequency, No Urgency, No Burning, No Hematuria, No Rashes, No Diaphoresis. Appetite is Normal Physical Exam Gen-AAO x 3, NAD, Afebrile Head-NCAT, EOMI, PERRLA, Anicteric Sclera, No Posterior Pharyngeal Erythema Neck-Supple, No JVD, No Thyromegaly, No Masses, No LAD, No Bruits Lungs-Clear to Auscultation Bilaterally, No Rales, No Rhonchi, No Wheezing, No Crepitus Chest-No S4, +S1, +S2, No S3, No Murmurs, No Rubs, No Gallops, No Ectopy Abdomen-Soft, Bowel Sounds Present, Non Tender, Non Distended, No Hepatomegaly, No Splenomegaly, No Palpable Masses, No Rebound, No Rigidity, No Guarding Musculoskeletal-Full Range of Motion Bilaterally, No CVAT Extremities-No Cyanosis, No Clubbing, No Edema Nuero-Cranial Nerves II-XII grossly intact, Motor WNL, DTRs WNL, Strength WNL, Non Focal Psych-Normal Mood Admission and Anticipated Discharge Date Admission Date: July 28, 2020 Results & Data Results & Data ([facility]) Vital Signs (Past 12 Hours) Vital Signs Temp Pulse Pulse Resp BP BP Pulse Ox 07/29/20 07:11 37.1 C 88 20 107/67 97 07/29/20 07:00 84 07/29/20 03:15 37.0 C 77 20 119/72 97 07/29/20 03:13 74 20 97 07/28/20 23:48 82 32 H 95 07/28/20 23:23 36.9 C 81 20 104/68 97 07/28/20 23:19 91 H
--- NOTE | 2020-07-29 09:46 | Discharge Summary ---
Date of Service July 29, 2020 Admission HPI Per Admitting Provider History obtained from patient and records. Medical history significant for chronic hypoxemic/hypercapnic respiratory failure secondary to pulmonary arterial hypertension on the Letairis/Revatio on home O2 and nocturnal BiPAP, 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 steroid therapy, restrictive lung disease/history diaphragm paralysis, Rathke's cleft cyst as per records, chronic anemia (baseli ne hemoglobin of 11 ), hypothyroidism, hyperlipidemia, prediabetes. Patient met with [facility] director veterinary on televideo follow-up 3 weeks ago. Uptrending bicarb noted on outpatient blood work. Outpatient VBG requested by specialist. Outpatient VBG done at [facility] 10 days ago showed pH of 7.23, PCO2 113. Patient denies unusual chest pain, S OB, cough symptoms. Usual fluid retention symptoms. Patient directed to ER by outpatient providers. BiPAP to be initiated at the ER as per [facility] director veterinary. Medical History as above Surgical History : Tracheostomy, vascular procedures Family History : Breast cancer, DM, heart disease Personal/Social history : Non-smoker, no EtOH intake, disabled I certify that this patient is under my care and that I, or a physicians life science research assistant working with me, had a face to-face encounter that meets the home health [id number] encounter requirements with this patient. The encounter with the patient was in whole, or in part, for the following medical condition, which is the primary reason for home health care (list medical condition): I certify that, based on my findings, the following services are medically necessary home health services: My clinical findings support the need for the above services because: Further, I certify that my clinical findings support that this patient is homebound (i.e. absences from home require considerable and taxing effort and are for medical reasons or restoration services or infrequently or of short duration when for other reasons) because: Certification for Home Health Services: Based on the above findings, I certify that this patient is confined to the home and needs intermittent long term care, physical therapy and/or speech therapy or continues to need occupational therapy. The patient is under my care, and I have initiated the establishment of the plan of care. This patient will be followed by a physician who will periodically review the plan of care. Admission Exam Per Admitting Provider GENERAL: Comfortable, obese, no respiratory distress SKIN: Normal color, warm HEENT: Bespectacled, [place] palpebral conjunctivae, no ptosis, moist buccal mucosa, nasal cannula in place NECK : Supple, short neck, no tenderness CHEST : Decreased breath sounds, no tenderness HEART : RRR, no obvious murmurs ABDOMEN: Some distention, nontender EXTREMITIES : Bilateral LE swelling, no LE tenderness, no other conspicuous deformities noted NEUROLOGIC : Coherent, no facial asymmetry, no other gross focality Principal Diagnosis Acute and chronic respiratory failure with hypercapnia: hx chronic hypoxemic/hypercapnic respiratory failure secondary to pulmonary arterial hypertension restrictive lung disease/history diaphragm paralysis on home O2 and nocturnal BiPAP Respiratory acidosis hx 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 steroid therapy Rathke's cleft cyst chronic anemia hypothyroidism hyperlipidemia prediabetes/steroid-induced hyperglycemia Hypokalemia Discharge Exam See below Discharge Data Allergies Allergy/AdvReac Type Severity Reaction Status Date / Time chlorhexidine Allergy Mild BURNING, Verified 07/26/20 19:42 STINGING, RED RASH aspirin Allergy Unknown AVOIDS Verified 07/26/20 19:42 SECONDARY TO MEDS/MEDICAL CONDITIONS TIGIST Inhibitors AdvReac Intermediate SEVERE Verified 07/26/20 19:42 COUGH NSAIDS (Non-Steroidal AdvReac Unknown AVOIDS Verified 07/26/20 19:42 Anti-Inflamma SECONDARY TO MEDS/MEDICAL CONDITIONS Consultations 07/26/20 22:21 ED Decision to Admit Stat Current Diagnoses Acute and chronic respiratory failure with hypercapnia (07/28/20) Allergies chlorhexidine Allergy (Mild, Verified 07/26/20 19:42) BURNING, STINGING, RED RASH aspirin Allergy (Unknown, Verified 07/26/20 19:42) AVOIDS SECONDARY TO MEDS/MEDICAL CONDITIONS TIGIST Inhibitors Adverse Reaction (Intermediate, Verified 07/26/20 19:42) SEVERE COUGH NSAIDS (Non-Steroidal Anti-Inflamma Adverse Reaction (Unknown, Verified 07/26/20 19:42) AVOIDS SECONDARY TO MEDS/MEDICAL CONDITIONS Height/Weight/Isolation Height 5 ft Weight 84.3 kg Chemistry 07/28/20 07/29/20 07:45 08:23 Sodium 139 136 Potassium 4.1 3.8 Chloride 100 96 L Carbon Dioxide 37 H 35 H Anion Gap 2.0 L 5.0 BUN 19 H 20 H Creatinine 0.63 0.90 Glucose 101 H 151 H Hospital Course (1) Acute and chronic respiratory failure with hypercapnia: hx chronic hypoxemic/hypercapnic respiratory failure secondary to pulmonary arterial hypertension on the Letairis/Revatio restrictive lung disease/history diaphragm paralysis on home O2 and nocturnal BiPAP-/ at home. She doesn't know how to adjust settings and sometimes falls asleep wo being on BIPAP. DC today or AM on reprogrammed BIPAP Settings Marked respiratory acidosis on outpatient VBG requested by patient [facility] director veterinary almost 2 weeks ago. Patient pulmonary symptoms at baseline. Last PCO2 55 hx 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 steroid therapy Rathke's cleft cyst as per records, stable on recent outpatient MRI chronic anemia, hemoglobin at baseline hypothyroidism, low TSH from outpatient blood work hyperlipidemia on statin Rx prediabetes/steroid-induced hyperglycemia, hemoglobin A1c of 6 from November 2019 Hypokalemia secondary diuretic Rx Change to inpatient, Increase BIPAP to 18/9 ABG PCO2 55 ABG relayed to director veterinary. DC Home today if able DC today or am and reprogram BIPAP machine to 2/ Full code ROS-No Headache, No Visual Changes, No Nausea, No Vomiting, No Fever, No Chills, No Neck Pain or Stiffness, No Chest Pain, No Palpitations, No SOB, No SILVERMAN, No Cough, No Sputum, No Wheezing, No Abdominal Pain, No Diarrhea, No Hematemesis, No Hemoptysis, No Unexpected Weight Loss, No Flank pain, No Melena, No Hematochezia, No Frequency, No Urgency, No Burning, No Hematuria, No Rashes, No Diaphoresis. Appetite is Normal Physical Exam Gen-AAO x 3, NAD, Afebrile Head-NCAT, EOMI, PERRLA, Anicteric Sclera, No Posterior Pharyngeal Erythema Neck-Supple, No JVD, No Thyromegaly, No Masses, No LAD, No Bruits Lungs-Clear to Auscultation Bilaterally, No Rales, No Rhonchi, No Wheezing, No Crepitus Chest-No S4, +S1, +S2, No S3, No Murmurs, No Rubs, No Gallops, No Ectopy Abdomen-Soft, Bowel Sounds Present, Non Tender, Non Distended, No Hepatomegaly, No Splenomegaly, No Palpable Masses, No Rebound, No Rigidity, No Guarding Musculoskeletal-Full Range of Motion Bilaterally, No CVAT Extremities-No Cyanosis, No Clubbing, No Edema Nuero-Cranial Nerves II-XII grossly intact, Motor WNL, DTRs WNL, Strength WNL, Non Focal Psych-Normal Mood Total Time Total Time Spent Total Time Spent (In Minutes): 45 mins Total Time Includes: Examination of the Patient, Discharge Planning, Medication Reconciliation and Communication With Other Providers Discharge Plan Discharge Items Patient Disposition: Home - Home Health Services Reason For Visit: RESP FAILURE Discharge Diagnosis: Acute and chronic respiratory failure with hypercapnia: hx chronic hypoxemic/hypercapnic respiratory failure secondary to pulmonary arterial hypertension restrictive lung disease/history diaphragm paralysis on home O2 and nocturnal BiPAP Respiratory acidosis hx 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 steroid therapy Rathke's cleft cyst chronic anemia hypothyroidism hyperlipidemia prediabetes/steroid-induced hyperglycemia Hypokalemia Condition on Discharge: Good Health Concerns: Compliance with BIPAP Activity: Resume your previous activity Lifting: Gradually increase as tolerated Bathing: No limitations Exercise/Sports: Gradually increase as tolerated Driving/Machine Use: No limitations Weightbearing: Full weightbearing Non-emergency contact: Primary Care Provider and Computer Information Systems Instructor Call non-emergency contact if: you have any medication questions Follow-up/Referrals: Willi Torres MD [Primary Care Provider] - (Date & Time 08/03/2020 10:20 AM Provider Deanna Campuzano MD Department General Internal Medicine [facility] ) Muna Bowie DO [Outside Practitioners] - Diet: Regular Addtl Attending Provider Instructions: Try to wear your BIPAP as much as possible Pending Studies at Discharge: No Stand-Alone Forms: [facility], Smoking Cessation Medications and DC Order Prescriptions: New potassium chloride [Klor-Con M20] 20 mEq Tablet,Er Particles/Crystals 20 meq PO BID Qty: 20 RF: 0 cholecalciferol (vitamin D3) 25 mcg (1,000 unit) Capsule 3,000 unit PO QAM Qty: 90 RF: 0 Continued atorvastatin 20 mg Tablet 20 mg PO QAM RF: 0 albuterol sulfate 2.5 mg /3 mL (0.083 %) Solution For Nebulization 2.5 mg INHALATION Q4 PRN (Reason: Shortness Of Breath) RF: 0 ammonium lactate 12 % Lotion 1 applic TOPICAL BID PRN (Reason: Rash) RF: 0 prednisone 5 mg Tablet 5 mg PO QAM RF: 0 triamcinolone acetonide 0.1 % Cream 1 applic TOPICAL BID PRN (Reason: Rash) RF: 0 spironolactone 25 mg Tablet 50 mg PO QAM RF: 0 docusate sodium [Colace] 100 mg Capsule 100 mg PO QAM RF: 0 hydrocortisone 2.5 % Cream 1 applic TOPICAL BID PRN (Reason: Rash) RF: 0 furosemide 20 mg Tablet 20 mg PO QAM RF: 0 fluticasone propionate [Flonase Allergy Relief] 50 mcg/actuation Carver,Suspension 2 spray INTRANASAL DAILY PRN (Reason: Nasal Congestion) RF: 0 loratadine 10 mg Tablet 10 mg PO QAM RF: 0 metoprolol tartrate 25 mg Tablet 25 mg PO BID RF: 0 sildenafil (pulm.hypertension) [Revatio] 20 mg Tablet 20 mg PO TID RF: 0 ambrisentan 10 mg Tablet 10 mg PO QAM RF: 0 diclofenac sodium [Voltaren] 1 % Gel 2 g TOPICAL QID PRN (Reason: joint pain) RF: 0 cholecalciferol (vitamin D3) 2,000 unit Capsule 3 cap PO QAM RF: 0 Vitron-C 65 mg iron- 125 mg Tablet,Delayed Release (Dr/Ec) 1 tab PO 3XWK RF: 0 levothyroxine 112 mcg tablet 112 mcg PO DAILYBB RF: 0 Discharge Orders: Discharge Order (Routine); Ordered 07/29/20 Ordered By: Chris See Admission Data Admit Date/Time: 07/28/20 09:29 Attending Provider: Chris See Admit Provider: Neftaly León Primary Care Provider: Willi Torres Other Providers: Neftaly León
== END 2020-07-29 13:44 | disposition home or self-care (01) | DRG 189 ==
LOC: 2W 18:38 → ED 18:38 → SUATTDRO 23:42 → 2W 07-27 01:20

== ENCOUNTER 2023-06-11 10:08 | Inpatient (IN) ==
[2023-06-11 10:58] LABS: INR 1.1 (0.9-1.1); Partial Thromboplastin Ratio 1.1; Partial Thromboplastin Time 29 Seconds (21-31); Prothrombin Time 11.6 Seconds (9.0-12.0)
[2023-06-11 11:00] LABS: Basophils # (auto) 0.01 K/uL (0.00-0.20); Basophils % (auto) 0.1 %; Eosinophils # (auto) 0.07 K/uL (0.00-0.50); Eosinophils % (auto) 0.7 %; Hemoglobin 11.2 g/dl (12.0-16.0); Immature Granulocytes # (auto) 0.04 K/uL (0.01-0.20); Immature Granulocytes % (auto) 0.4 %; Lymphocytes # (auto) 1.02 K/uL (1.20-3.40); Lymphocytes % (auto) 10.4 %; Mean Corpuscular Hemoglobin 29.9 pg (25.0-34.0); Mean Corpuscular Volume 93.6 fL (80.0-100.0); Mean Platelet Volume 10.3 fL (9.4-12.4); Monocytes # (auto) 0.62 K/uL (0.11-0.59); Monocytes % (auto) 6.3 %; Neutrophils # (auto) 8.01 K/uL (1.40-6.50); Neutrophils % (auto) 82.1 %; Platelet Count 180 K/uL (130-400); RDW Coefficient of Variation 13.1 % (11.5-14.5); RDW Standard Deviation 44.3 fL (36.4-46.3); Red Blood Count 3.74 M/uL (4.20-5.40); White Blood Count 9.77 K/ul (4.8-10.8)
[2023-06-11 11:02] LABS: Alanine Aminotransferase 12 U/L (7-52); Albumin Globulin Ratio 1.3 (0.9-2); Albumin Level 4.1 gm/dl (3.4-5.0); Alkaline Phosphatase 68 U/L (34-104); Anion Gap 10 (3-11); Aspartate Aminotransferase 10 U/L (13-39); BUN Creatinine Ratio 21.3 (10-20); Bilirubin,Total 0.7 mg/dl (0.2-1.0); Blood Urea Nitrogen 27 mg/dl (6-23); Calcium 9.3 mg/dl (8.6-10.3); Carbon Dioxide 31 mmol/L (21-32); Chloride 94 mmol/L (98-107); Est GFR (African American) 53.1 ml/min; Est GFR (Non-African American) 45.8 ml/min; Globulin 3.2 gm/dl (2.5-4.0); Glucose 120 mg/dl (70-99(Fasting)); Sodium 135 mmol/L (136-145); Total Protein 7.3 gm/dl (6.0-8.3)
[2023-06-11 11:08] LABS: Troponin I High Sensitivity 15.4 pg/ml (0-14)
--- NOTE | 2023-06-11 11:25 | XRay Report ---
XR chest 1V not portable HISTORY: Shortness of breath. Vomiting. COMPARISON: Chest 06/08/2023. FINDINGS: There are low lung volumes. No pneumothorax. Chronic elevation of the right hemidiaphragm. The heart remains enlarged. There is mild central pulmonary vascular congestion without overt edema. This is similar to the prior study. No acute fractures. Bibasilar linear densities favor subsegmental atelectasis. IMPRESSION: 1. Cardiomegaly with mild congestive change. This is similar to the prior study. 2. Chronic elevation of the right hemidiaphragm. 3. Bibasilar linear densities favor subsegmental atelectasis. ACT 112: Negative or not required by law. Electronically signed by: Phani Bates M.D. 06/11/2023 11:24 AM
[2023-06-11 11:30] LABS: Adenovirus PCR Not Detected (NotDetected); Bordetella parapertussis PCR Not Detected (NotDetected); Bordetella pertussis PCR Not Detected (NotDetected); Chlamydia pneumoniae PCR Not Detected (NotDetected); Coronavirus 229E PCR Not Detected (NotDetected); Coronavirus CoV-2 (COVID19)PCR Not Detected (NotDetected); Coronavirus HKU1 PCR Not Detected (NotDetected); Coronavirus NL63 PCR Not Detected (NotDetected); Coronavirus OC43PCR Not Detected (NotDetected); Human Metapneumovirus PCR Not Detected (NotDetected); Influenza A PCR Not Detected (NotDetected); Influenza B PCR Not Detected (NotDetected); Mycoplasma pneumoniae PCR Not Detected (NotDetected); Parainfluenza Virus 1 PCR Not Detected (NotDetected); Parainfluenza Virus 2 PCR Not Detected (NotDetected); Parainfluenza Virus 3 PCR Not Detected (NotDetected); Parainfluenza Virus 4 PCR Not Detected (NotDetected); Respiratory Syncytial VirusPCR Not Detected (NotDetected); Rhinovirus/Enterovirus PCR Not Detected (NotDetected)
--- NOTE | 2023-06-11 11:49 | Emergency Department Note ---
Impression & Plan Nausea vomiting and diarrhea, ESTEPHANIE (acute kidney injury) ED Provider Note NAME: ANNETTE SANTOS AGE: 58 SEX: F : 1965 ARRIVES VIA: Walk-In INFORMANT: Patient, ED PROVIDER(S): Suhail Boyd DO CHIEF COMPLAINT: Abdominal pain HPI: The patient is a 58-year-old female who presented to the emergency department for an evaluation of abdominal pain nausea vomiting and diarrhea. She has been having symptoms for approximately 5 days now. The patient denies having any GI bleeding but she is noticed a low-grade fever. She was seen in our facility recently for similar complaints. She called her family doctor today to be seen in follow-up and because of her fever and ongoing symptoms she was told to come directly to the emergency department. The patient denies having any chest pain or difficulty breathing at this time. She does have underlying lung issues but she has been wearing her oxygen. ROS: See above HPI for pertinent positives & negatives. A total of 10 systems reviewed and were otherwise negative. PAST MEDICAL HISTORY: See Below PAST SURGICAL HISTORY: See Below FAMILY HISTORY: See Below SOCIAL HISTORY: See Below HOME MEDICATIONS: See Below ALLERGIES: See Below VITALS: See Below PHYSICAL EXAMINATION: GENERAL: The patient is awake and alert. She is somewhat anxious appearing. EYES: The conjunctivae are clear. The pupils are round and reactive. EARS, NOSE, MOUTH AND THROAT: The nose is without any evidence of any deformity. Mucous membranes are moist. Tongue is midline. NECK: The neck is nontender and supple. RESPIRATORY: Normal respiratory effort is noted there is no evidence of wheezing rhonchi or rales CARDIOVASCULAR: Tachycardic but regular heart sounds were noted to auscultation. There is no definite murmur. GASTROINTESTINAL: The abdomen was soft and mildly distended. There is diffuse lower abdominal tenderness to palpation but no specific guarding or rigidity. MUSCULOSKELETAL/EXTREMITIES: There is no evidence of gross deformity full range of motion is noted in the hips and shoulders. SKIN: There is no obvious evidence of any rash. There are no petechiae, pallor or cyanosis noted. NEUROLOGIC: Patient is awake alert and oriented x3. MEDICAL DECISION MAKING: The patient is a 58-year-old female who presented to the emergency department at the request of her primary care physician for an evaluation of nausea vomiting and diarrhea. The patient was treated with IV fluids and IV pain medication in the emergency department. She was reevaluated multiple times. I discussed the patient's laboratory and radiographic studies with her. I reviewed the patient's recent CT that was done in our department. The patient was feeling much better on reevaluation. She still is tachycardic. She was not given a large fluid bolus given her cardiac history. I do feel the patient would not be a good candidate for outpatient management at this time. For this reason I discussed her condition with the on-call [facility]ist. Triage Nursing notes reviewed. Prior medical records reviewed Vital Signs: reviewed and remarkable for tachycardia. Differential diagnosis: Etiologies such as appendicitis, diverticulitis, obstruction, inflammatory bowel disease, renal colic, PUD, biliary pathology, pancreatitis, mesenteric ischemia, aortic pathology, infections, genitourinary, UTI, perforated viscus, as well as others were entertained. ER treatment provided: See below Diagnostics interpreted by me: ECG: EKG was obtained in the emergency department. My interpretation is sinus tachycardia 112 bpm. There is no ectopy. Nonspecific ST and T wave abnormalities were noted. Incomplete right bundle branch block pattern was noted. This was compared to a tracing from August 10, 2015. There was an increase in the rate otherwise no specific changes were noted. Cardiac Monitoring: An order was placed for continuous cardiac monitoring. The monitor shows a rate of 118 bpm with sinus tachycardia. Laboratory studies: As stated above and show below. Imaging studies: See below. Radiographic imaging was reviewed by myself Consultation(s): I discussed this case with Anastasia who is on-call for the [facility] Hospitalist group Past Med/Surg History Medical History (Updated 06/11/23 @ 13:47 by Suhail Boyd DO) History of central line-associated bloodstream infection (CLABSI) Osteoarthritis History of end stage renal disease "acute"--on dialysis for awhile after central line infection, no issues now GERD (gastroesophageal reflux disease) Hypothyroidism Polymyositis Anemia Migraine Chronic cor pulmonale Chronic respiratory failure with hypoxia Poor historian Congestive heart failure Hypertension Hyperlipidemia Restrictive lung disease Sleep apnea bipap with 3L On home oxygen therapy continuous--3-4L during the day and 3L at night Surgical History Status post PICC central line placement Status post insertion of dialysis catheter removed after renal disease resolved History of colonoscopy History of tooth extraction History of cardiac cath --no stents Family History Mother Family history of reaction to anesthesia difficulty waking, nausea/vomiting Family history of diabetes mellitus Sister Family history of diabetes mellitus Social History Smoking Status: Never smoker Second Hand Exposure: No; Do You Dip or Chew Tobacco: No; Hx Alcohol Use: No Hx Substance Use: No Preferred Language: Maltese Communication Ability: Effective Quality Assurance Nurse Required: No Beliefs That Will Affect Care: None marital status: Single Current Living Situation: Alone Current Living Situation Comment: Lives with father Feels Safe at Home: Yes Assistive Devices: BiPap, Glasses and Oxygen - Continuous Allergies Allergies Allergy/AdvReac Type Severity Reaction Status Date / Time chlorhexidine Allergy Mild BURNING, Verified 06/08/23 19:55 STINGING, RED RASH aspirin Allergy Unknown AVOIDS Verified 06/08/23 19:55 SECONDARY TO MEDS/MEDICAL CONDITIONS TIGIST Inhibitors AdvReac Intermediate SEVERE Verified 06/08/23 19:55 COUGH NSAIDS (Non-Steroidal AdvReac Unknown AVOIDS Verified 06/08/23 19:55 Anti-Inflamma SECONDARY TO MEDS/MEDICAL CONDITIONS Home Meds Home Medications Medication Instructions Recorded Confirmed atorvastatin 20 mg tablet 20 mg PO QAM 05/29/18 06/08/23 diclofenac sodium 1 % topical gel 2 g topical QID PRN joint pain 05/29/18 06/08/23 (Voltaren) docusate sodium 100 mg capsule 100 mg PO QAM 05/29/18 06/08/23 (Colace) fluticasone propionate 50 2 spray intranasal DAILY PRN Nasal 05/29/18 06/08/23 mcg/actuation nasal Congestion spray,suspension (Flonase Allergy Relief) furosemide 20 mg tablet 40 mg PO QAM 05/29/18 06/08/23 iron,carbonyl 65 mg-vitamin C 125 1 tab PO DAILY 05/29/18 06/08/23 mg tablet,delayed release (Vitron-C) loratadine 10 mg tablet 10 mg PO QAM 05/29/18 06/08/23 metoprolol tartrate 25 mg tablet 25 mg PO BID 05/29/18 06/08/23 prednisone 5 mg tablet 5 mg PO QAM 05/29/18 06/08/23 sildenafil (pulm.hypertension) 20 40 mg PO TID 05/29/18 06/08/23 mg tablet (Revatio) spironolactone 25 mg tablet 50 mg PO QAM 05/29/18 06/08/23 levothyroxine 112 mcg tablet 112 mcg PO DAILYBB 07/26/20 06/08/23 ammonium lactate 12 % lotion 1 applic topical BID 01/10/23 06/08/23 vibegron 75 mg tablet 75 mg PO DAILY 01/10/23 06/08/23 ambrisentan 10 mg tablet (Letairis) 10 mg PO DAILY 06/08/23 06/08/23 ipratropium bromide 42 mcg (0.06 2 spray intranasal BID 06/08/23 06/08/23 %) nasal spray selexipag 1,600 mcg tablet 1,600 mcg PO BID 06/08/23 06/08/23 (Uptravi) Previous Rx's Medication Instructions Recorded ondansetron 4 mg disintegrating 4 mg PO Q6H PRN nausea and 06/08/23 tablet vomiting #14 tabs Results & Data (ED) Vital Signs Vital Signs - 24 hr 06/11/23 10:09 06/11/23 11:18 06/11/23 11:26 Temperature 37.5 C Temperature Source Oral Pulse Rate 116 H 109 H Pulse Rate [Left Apical] 111 H Respiratory Rate 20 22 Respiratory Effort / Characteristics Short of Breath Respiratory Depth Blood Pressure 114/62 Blood Pressure [Right Arm] 119/65 Blood Pressure Mean 79 Blood Pressure Mean [Right Arm] 83 Pulse Oximetry 97 98 Oxygen Delivery Method Nasal Cannula Nasal Cannula Oxygen Flow Rate 3 3 Sepsis New/Unexplained Change in Mental Status No Sepsis Action Taken by Nursing No Action Required 06/11/23 12:06 06/11/23 13:08 Temperature Temperature Source Pulse Rate Pulse Rate [Left Apical] 114 H 122 H Respiratory Rate 19 24 Respiratory Effort / Characteristics Non-Labored Non-Labored Spontaneous Respiratory Depth Normal Shallow Blood Pressure Blood Pressure [Right Arm] 138/73 129/49 L Blood Pressure Mean Blood Pressure Mean [Right Arm] 94 75 Pulse Oximetry 100 100 Oxygen Delivery Method Room Air Nasal Cannula Oxygen Flow Rate 3 Sepsis New/Unexplained Change in Mental Status Sepsis Action Taken by Care Home Medications Current Medication List: was personally reviewed by wv Laboratory Data Attestation: I reviewed the patient's lab results. 06/11/23 10:25 06/11/23 10:25 Lab Results 06/11/23 Range/Units 10:25 WBC 9.77 (4.8-10.8) K/ul RBC 3.74 L (4.20-5.40) M/uL Hgb 11.2 L (12.0-16.0) g/dl Hct 35.0 L (37.0-47.0) % MCV 93.6 (80.0-100.0) fL MCH 29.9 (25.0-34.0) pg MCHC 32.0 (32.0-36.0) g/dL RDW Std Deviation 44.3 (36.4-46.3) fL RDW Coeff of David 13.1 (11.5-14.5) % Plt Count 180 (130-400) K/uL MPV 10.3 (9.4-12.4) fL Immature Gran % (Auto) 0.4 % Neut % (Auto) 82.1 % Lymph % (Auto) 10.4 % Bell % (Auto) 6.3 % Eos % (Auto) 0.7 % Baso % (Auto) 0.1 % Neut # (Auto) 8.01 H (1.40-6.50) K/uL Lymph # (Auto) 1.02 L (1.20-3.40) K/uL Bell # (Auto) 0.62 H (0.11-0.59) K/uL Eos # (Auto) 0.07 (0.00-0.50) K/uL Baso # (Auto) 0.01 (0.00-0.20) K/uL Immature Gran # (Auto) 0.04 (0.01-0.20) K/uL PT 11.6 (9.0-12.0) Seconds INR 1.1 (0.9-1.1) APTT 29 (21-31) Seconds PTT Ratio 1.1 Sodium 135 L (136-145) mmol/L Potassium 4.0 (3.5-5.1) mmol/L Chloride 94 L (98-107) mmol/L Carbon Dioxide 31 (21-32) mmol/L Anion Gap 10 (3-11) BUN 27 H (6-23) mg/dl Creatinine 1.27 H (0.6-1.2) mg/dl Est Cr Clr Drug Dosing Not Reportable Est GFR ( Amer) 53.1 ml/min Est GFR (Non-Af Amer) 45.8 ml/min BUN/Creatinine Ratio 21.3 H (10-20) Glucose 120 H (70-99(Fasting)) mg/dl Calcium 9.3 (8.6-10.3) mg/dl Magnesium 1.8 (1.7-2.4) mg/dl Total Bilirubin 0.7 (0.2-1.0) mg/dl AST 10 L (13-39) U/L ALT 12 (7-52) U/L Alkaline Phosphatase 68 (34-104) U/L Troponin I High Sens 15.4 H (0-14) pg/ml B-Natriuretic Peptide 243 H (0-100) pg/ml Total Protein 7.3 (6.0-8.3) gm/dl Albumin 4.1 (3.4-5.0) gm/dl Globulin 3.2 (2.5-4.0) gm/dl Albumin/Globulin Ratio 1.3 (0.9-2) Adenovirus (PCR) Not Detected (NotDetected) B. pertussis DNA (PCR) Not Detected (NotDetected) B.parapertussis DNA PCR Not Detected (NotDetected) C. pneumoniae DNA (PCR) Not Detected (NotDetected) Coronavirus OC43 (PCR) Not Detected (NotDetected) Coronavirus HKU1 (PCR) Not Detected (NotDetected) Coronavirus 229E (PCR) Not Detected (NotDetected) SARS-CoV-2 (PCR) Not Detected (NotDetected) Coronavirus NL63 (PCR) Not Detected (NotDetected) Human Metapneumovir PCR Not Detected (NotDetected) Influenza Type A (PCR) Not Detected (NotDetected) Influenza Type B (PCR) Not Detected (NotDetected) M. pneumoniae (PCR) Not Detected (NotDetected) Parainfluenza 1 (PCR) Not Detected (NotDetected) Parainfluenza 2 (PCR) Not Detected (NotDetected) Parainfluenza 3 (PCR) Not Detected (NotDetected) Parainfluenza 4 (PCR) Not Detected (NotDetected) RSV (PCR) Not Detected (NotDetected) Entero/Rhino (PCR) Not Detected (NotDetected) Administered Medications Sodium Chloride (Nss) 500 mls @ 999 mls/hr IV .Q31M ONE Stop: 06/11/23 14:09 Last Admin: 06/11/23 13:45 Dose: 999 mls/hr Documented By: KATHLEEN Discontinued Medications Sodium Chloride (Nss) 500 mls @ 999 mls/hr IV .Q31M ONE Stop: 06/11/23 12:16 Last Infusion: 06/11/23 13:09 Dose: Infused Documented By: Admin: 06/11/23 11:59 Dose: 999 mls/hr Documented By: KATHLEEN Morphine Sulfate (Morphine Sulfate 4 Mg/Ml 1 Ml Carp\\Vial) 4 mg IV NOW STA Stop: 06/11/23 11:47 Last Admin: 06/11/23 11:57 Dose: 4 mg Documented By: KATHLEEN Ondansetron HCl (Ondansetron Inj 2 Mg/Ml 2 Ml Vial) 4 mg IV NOW STA Stop: 06/11/23 11:47 Last Admin: 06/11/23 11:57 Dose: 4 mg Documented By: KATHLEEN Imaging Data Attestation: I personally reviewed and interpreted this imaging study as follows: My Impression: 1 view chest x-ray and KUB were obtained in the emergency department. My interpretation is no free air or signs of definite bowel obstruction, final report below. Radiologist's Impression: Chest X-Ray 06/11/23 10:17 XR chest 1V not portable HISTORY: Shortness of breath. Vomiting. COMPARISON: Chest 06/08/2023. FINDINGS: There are low lung volumes. No pneumothorax. Chronic elevation of the right hemidiaphragm. The heart remains enlarged. There is mild central pulmonary vascular congestion without overt edema. This is similar to the prior study. No acute fractures. Bibasilar linear densities favor subsegmental atelectasis. IMPRESSION: 1. Cardiomegaly with mild congestive change. This is similar to the prior study. 2. Chronic elevation of the right hemidiaphragm. 3. Bibasilar linear densities favor subsegmental atelectasis. ACT 112: Negative or not required by law. Electronically signed by: Phani Bates M.D. 06/11/2023 11:24 AM KUB X-Ray 06/11/23 11:46 KUB CLINICAL HISTORY: Vomiting. COMPARISON STUDY: CT of the abdomen and pelvis June 08, 2023. FINDINGS: Elevation of the right hemidiaphragm is incidentally noted. The bowel gas pattern is normal. Pelvic calcifications represent phleboliths. The amount of stool is within normal limits. IMPRESSION: No evidence for a bowel obstruction. ACT 112: Negative or not required by law. Electronically signed by: Dylon Gerardo M.D. 06/11/2023 12:39 PM Discharge Plan Visit Data Chief Complaint: Illness Stated Complaint: DIARRHEA, VOMITING, FEVER ED Provider: Suhail Boyd Discharge Problem: Nausea vomiting and diarrhea, ESTEPHANIE (acute kidney injury) Patient Disposition: Being Evaluated by Hospitalist Forms Stand Alone Forms: [facility] Prescriptions Prescriptions: No Action atorvastatin 20 mg Tablet 20 mg PO QAM prednisone 5 mg Tablet 5 mg PO QAM spironolactone 25 mg Tablet 50 mg PO QAM docusate sodium [Colace] 100 mg Capsule 100 mg PO QAM furosemide 20 mg Tablet 40 mg PO QAM fluticasone propionate [Flonase Allergy Relief] 50 mcg/actuation Malin,Suspension 2 spray INTRANASAL DAILY PRN (Reason: Nasal Congestion) loratadine 10 mg Tablet 10 mg PO QAM metoprolol tartrate 25 mg Tablet 25 mg PO BID sildenafil (pulm.hypertension) [Revatio] 20 mg Tablet 40 mg PO TID diclofenac sodium [Voltaren] 1 % Gel 2 g TOPICAL QID PRN (Reason: joint pain) Vitron-C 65 mg iron- 125 mg Tablet,Delayed Release (Dr/Ec) 1 tab PO DAILY levothyroxine 112 mcg tablet 112 mcg PO DAILYBB ammonium lactate 12 % Lotion 1 applic TOPICAL BID vibegron 75 mg Tablet 75 mg PO DAILY ipratropium bromide 42 mcg (0.06 %) spray,non-aerosol 2 spray INTRANASAL BID ambrisentan [Letairis] 10 mg tablet 10 mg PO DAILY Uptravi 1,600 mcg tablet 1,600 mcg PO BID ondansetron 4 mg tablet,disintegrating 4 mg PO Q6H PRN (Reason: nausea and vomiting) Qty: 14 0RF Referrals Referrals: Willi Torres MD [Primary Care Provider] -
[2023-06-11] MEDS: MoRPHine SULFATE 4 MG/ML 1 ML CARP\\VIAL IV STA (11:57)
[2023-06-11] MEDS: ONDANSETRON INJ 2 MG/ML 2 ML VIAL IV STA (11:57)
[2023-06-11] MEDS: SODIUM CHLORIDE 0.9% 500 ML IV ONE ×2 (11:59→13:45)
--- NOTE | 2023-06-11 12:40 | XRay Report ---
KUB CLINICAL HISTORY: Vomiting. COMPARISON STUDY: CT of the abdomen and pelvis June 08, 2023. FINDINGS: Elevation of the right hemidiaphragm is incidentally noted. The bowel gas pattern is normal . Pelvic calcifications represent phleboliths. The amount of stool is within normal limits. IMPRESSION: No evidence for a bowel obstruction. ACT 112: Negative or not required by law. Electronically signed by: Dylon Gerardo M.D. 06/11/2023 12:39 PM
--- NOTE | 2023-06-11 14:03 | History & Physical Report ---
Date of Service June 11, 2023 Assessment & Plan (1) Gastroenteritis: (2) Chronic respiratory failure with hypoxia, on home O2 therapy: (3) Dehydration: (4) Secondary adrenal insufficiency: Plan This is a 58-year-old female who has a significant past medical history of chronic respiratory failure with hypoxia and hypercapnia, chronic cor pulmonale, idiopathic pulmonary arterial hypertension, restrictive lung disease, BiPAP dependence, T2DM, central hypothyroidism, mixed hyperlipidemia, dermatomyositis on chronic steroid therapy who presents to ED secondary to persistent nausea, vomiting and diarrhea. Gastroenteritis Nausea/vomiting/diarrhea Dehydration Admit to PCU Obtain stool sample when able CT a/p: Persistent wall thickening of multiple ileal loops with associated mesenteric stranding and a small amount of ascites. The findings represent a nonspecific enteritis. Gentle IV fluid due to history of cor pulmonale She received 1 L of IV fluid in ED Will give another liter of NSS at 75 cc/h and reevaluate volume status Clear liquid diet for now Will start empiric pip/tazo for now baseline cr 1.0, cr 1.2 today Sinus tachycardia Likely in setting of dehydration as well as missed doses of metoprolol Ordered 5 mg of IV Lopressor x 1 now Will also schedule home dose of 25 mg of Metoprolol tartrate now, and resume home regimen of twice daily. will re evaluate Chronic hypoxic respiratory failure with hypercapnia on 3 L at baseline Chronic cor pulmonale Idiopathic pulmonary arterial hypertension Restrictive lung disease BiPAP dependent Patient follows with [facility] pulmonary hypertension clinic which is relatively new for her She also follows pulmonary and sleep medicine in [place] Currently on regimen of Letairis, Uptravi and Revatio continue oxygen supplementation on 3L at baseline Hold lasix and aldactone due to volume depletion, resume when able Elevated troponin no CP or ecg changes likely demand ischemia will trend last echo 11/2022 Preserved left ventricular function, severe pulmonary hypertension with moderate redilation, moderate TR T2DM A1C 6.[address] on novolog SS as needed monitor closely, may need to consult glycemic pharmacy if BSG become to elevated Dermatomyositis chronic prednisone therapy give stress dose steroid hydrocortisone 50mg TID, a.m. provider to wean down in a.m. Hypothyroidism chronic, stable continue levothyroxine HLD chronic, stable continue statin DVT ppx: SQ Lovenox FULL CODE PCP: Dr. Torres Dispo: PCU Pt was seen and examined in collaboration with Dr. Mak, please see addendum A total of 76 minutes was spent coordinating, documenting, and providing care for this patient excluding time spent in the performance of separately billed services. This included personally viewing all current laboratories and imaging studies, medication reconciliation, outpatient chart review, and discussion with specialists. History of Present Illness Chief Complaint: Nausea, vomiting and diarrhea. Primary Care Provider: Willi Torres MD This is a 58-year-old female who has a significant past medical history of chronic respiratory failure with hypoxia and hypercapnia, chronic cor pulmonale, idiopathic pulmonary arterial hypertension, restrictive lung disease, BiPAP dependence, T2DM, central hypothyroidism, mixed hyperlipidemia, dermatomyositis on chronic steroid therapy who presents to ED secondary to persistent nausea, vomiting and diarrhea. Symptoms started approximately 5 days ago. She is complaining of abdominal cramping describing it is "Gremlins in her belly," nausea, vomiting and loose stool. She denies any sick contacts. She denies any documented fever but complains of being chilled and sweaty. She has chronic shortness of breath secondary to pulm hypertension and feels that this is at baseline. She currently feels like her heart rate is, "running out of her chest," and she can also feel it in her ears. Her last episode of vomiting was this morning. She has not had much to eat or drink in the last 5 days and describes her vomit as clear liquid. She is mostly incontinent of stool and urine at baseline. She is unsure if she had any black tarry stool. She has been able to take her medications but missed her dose last evening. Her last dose of metoprolol was around 3 AM. She is requesting her medications be time for now. She chronically wears a BiPAP at bedtime. She was seen and evaluated in the ER few days ago. CT scan of abdomen pelvis revealed a small bowel enteritis. She continues to have difficulty keeping food and fluid down and therefore he presented back to the ED. She lives alone. She denies any smoking or alcohol. Allergies Allergy/AdvReac Type Severity Reaction Status Date / Time chlorhexidine Allergy Mild BURNING, Verified 06/11/23 14:38 STINGING, RED RASH aspirin Allergy Unknown AVOIDS Verified 06/11/23 14:38 SECONDARY TO MEDS/MEDICAL CONDITIONS TIGIST Inhibitors AdvReac Intermediate SEVERE Verified 06/11/23 14:38 COUGH NSAIDS (Non-Steroidal AdvReac Unknown AVOIDS Verified 06/11/23 14:38 Anti-Inflamma SECONDARY TO MEDS/MEDICAL CONDITIONS Home Medications Medication Instructions Recorded Confirmed Type atorvastatin 20 mg tablet 20 mg PO QAM 05/29/18 06/11/23 History diclofenac sodium 1 % topical gel 2 g topical QID PRN joint pain 05/29/18 06/11/23 History (Voltaren) docusate sodium 100 mg capsule 100 mg PO PM 05/29/18 06/11/23 History (Colace) fluticasone propionate 50 2 spray intranasal DAILY PRN Nasal 05/29/18 06/11/23 History mcg/actuation nasal Congestion spray,suspension (Flonase Allergy Relief) furosemide 20 mg tablet 40 mg PO DAILY 05/29/18 06/11/23 History iron,carbonyl 65 mg-vitamin C 125 1 tab PO PM 05/29/18 06/11/23 History mg tablet,delayed release (Vitron-C) loratadine 10 mg tablet 10 mg PO QAM 05/29/18 06/11/23 History metoprolol tartrate 25 mg tablet 25 mg PO BID 05/29/18 06/11/23 History prednisone 5 mg tablet 5 mg PO QAM 05/29/18 06/11/23 History sildenafil (pulm.hypertension) 20 40 mg PO TID 05/29/18 06/11/23 History mg tablet (Revatio) spironolactone 25 mg tablet 50 mg PO QAM 05/29/18 06/11/23 History levothyroxine 112 mcg tablet 112 mcg PO DAILYBB 07/26/20 06/11/23 History ammonium lactate 12 % lotion 1 applic topical BID 01/10/23 06/11/23 History ambrisentan 10 mg tablet (Letairis) 10 mg PO DAILY 06/08/23 06/11/23 History ipratropium bromide 42 mcg (0.06 2 spray intranasal BID 06/08/23 06/11/23 History %) nasal spray ondansetron 4 mg disintegrating 4 mg PO Q6H PRN nausea and 06/08/23 06/11/23 Rx tablet vomiting #14 tabs selexipag 1,600 mcg tablet 1,600 mcg PO BID 06/08/23 06/11/23 History (Uptravi) vibegron 75 mg tablet 75 mg PO DAILY 06/11/23 06/11/23 History Past Med/Surg History Medical History (Updated 06/11/23 @ 22:00 by Chrissy Mak DO) History of central line-associated bloodstream infection (CLABSI) Osteoarthritis History of end stage renal disease "acute"--on dialysis for awhile after central line infection, no issues now GERD (gastroesophageal reflux disease) Hypothyroidism Polymyositis Anemia Migraine Chronic cor pulmonale Chronic respiratory failure with hypoxia Poor historian Congestive heart failure Hypertension Hyperlipidemia Restrictive lung disease Sleep apnea bipap with 3L On home oxygen therapy continuous--3-4L during the day and 3L at night Surgical History Status post PICC central line placement Status post insertion of dialysis catheter removed after renal disease resolved History of colonoscopy History of tooth extraction History of cardiac cath --no stents Family History Mother Family history of reaction to anesthesia difficulty waking, nausea/vomiting Family history of diabetes mellitus Sister Family history of diabetes mellitus Social History Smoking Status: Never smoker Second Hand Exposure: No; Do You Dip or Chew Tobacco: No; Hx Alcohol Use: No Hx Substance Use: No Preferred Language: Australian Communication Ability: Effective Emr Trainer Required: No Beliefs That Will Affect Care: None marital status: Single Current Living Situation: Alone Current Living Situation Comment: Lives with father Feels Safe at Home: Yes Safety Concerns: Feels Safe At This Time Assistive Devices: BiPap, Glasses and Oxygen - Continuous Review of Systems Review of Systems: All systems reviewed & are unremarkable except as noted in HPI & below Physical Exam Physical Exam: Constitutional: Chronically ill-appearing female, obese, vitals as above, NAD, sitting up in bed, pleasant, dyspneic on conversation Head: Normocephalic, Atraumatic Eyes: PERRL, conjunctivae normal, anicteric sclerae ENMT: external ear and nose normal, oropharynx normal Neck: trachea midline, no thyromegaly normal visual inspection Respiratory: increased Resp Effort, lungs clear to auscultation, no wheeze, rales, rhonchi. Normal insp/exp effort, no accessory muscle use Cardiovascular: tachycardic rate, reg rhythm, b/l venous stasis Vessels: no JVD or carotid bruit Chest: normal inspection of chest Abdomen: protuberant abd, TTP throughout, no rebound/guarding, soft, Musculoskeletal: no cyanosis or clubbing, AROM x4 Skin: no rashes, warm and dry mild turgor Neurologic: PERRL, EOMI, accommodation nl, no face palsy, no dysarthria CN's II-XI intact bilaterally and moves all extremities Psychiatric: A+Ox3, euthymic affect Lymphatic: no cervical or axillary lymphadenopathy : deferred Results & Data Results & Data Vital Signs (Past 12 Hours) Vital Signs Temp Pulse Pulse Resp BP BP Pulse Ox 06/11/23 13:08 122 H 24 129/49 L 100 06/11/23 12:06 114 H 19 138/73 100 06/11/23 11:26 111 H 22 119/65 98 06/11/23 11:18 109 H 06/11/23 10:09 37.5 C 116 H 20 114/62 97 O2 Del Method O2 Flow Rate 06/11/23 13:08 Nasal Cannula 3 06/11/23 12:06 Room Air 06/11/23 11:26 Nasal Cannula 3 06/11/23 11:18 06/11/23 10:09 Nasal Cannula 3 Diagnostic Findings Chest X-Ray 06/11/23 10:17 XR chest 1V not portable HISTORY: Shortness of breath. Vomiting. COMPARISON: Chest 06/08/2023. FINDINGS: There are low lung volumes. No pneumothorax. Chronic elevation of the right hemidiaphragm. The heart remains enlarged. There is mild central pulmonary vascular congestion without overt edema. This is similar to the prior study. No acute fractures. Bibasilar linear densities favor subsegmental atelectasis. IMPRESSION: 1. Cardiomegaly with mild congestive change. This is similar to the prior study. 2. Chronic elevation of the right hemidiaphragm. 3. Bibasilar linear densities favor subsegmental atelectasis. ACT 112: Negative or not required by law. Electronically signed by: Phani Bates M.D. 06/11/2023 11:24 AM KUB X-Ray 06/11/23 11:46 KUB CLINICAL HISTORY: Vomiting. COMPARISON STUDY: CT of the abdomen and pelvis June 08, 2023. FINDINGS: Elevation of the right hemidiaphragm is incidentally noted. The bowel gas pattern is normal. Pelvic calcifications represent phleboliths. The amount of stool is within normal limits. IMPRESSION: No evidence for a bowel obstruction. ACT 112: Negative or not required by law. Electronically signed by: Dylon Gerardo M.D. 06/11/2023 12:39 PM Medications Administered Current Inpatient Medications Acetaminophen (Acetaminophen 325 Mg Tab) 650 mg PO Q4H PRN PRN Reason: Pain or Fever Stop: 07/11/23 14:29 Al Hydrox/Mg Hydrox/Simethicone (Aluminum/Magnesium Susp 30 Ml Udc) 15 ml PO Q4H PRN PRN Reason: Dyspepsia Stop: 07/11/23 14:29 Ambrisentan (Ambrisentan) 1 each PO DAILY ON LICENSE OF [facility] Stop: 07/11/23 15:29 Atorvastatin Calcium (Atorvastatin 20 Mg Tab) 20 mg PO QAM ON LICENSE OF [facility] Stop: 07/12/23 08:59 Sodium Chloride (Nss) 1,000 mls @ 75 mls/hr IV .[id number] ON LICENSE OF [facility] Stop: 06/12/23 03:49 Lactic Acid (Ammonium Lactate 12% Lotion 225 Gm Btl) 1 gm EXT BID ON LICENSE OF [facility] Stop: 07/11/23 20:59 Levothyroxine Sodium (Levothyroxine Sodium 112 Mcg Tablet) 112 mcg PO DAILYBB ON LICENSE OF [facility] Stop: 07/12/23 06:29 Loratadine (Loratadine 10 Mg Tab) 10 mg PO QAM ON LICENSE OF [facility] Stop: 07/12/23 08:59 Metoprolol Tartrate (Metoprolol Tartrate 25 Mg Tab) 25 mg PO BID ON LICENSE OF [facility] Stop: 07/11/23 15:29 Ondansetron HCl (Ondansetron Inj 2 Mg/Ml 2 Ml Vial) 4 mg IV Q6H PRN PRN Reason: Nausea Stop: 07/11/23 14:29 Prednisone (Prednisone 5 Mg Tab) 5 mg PO QAM ON LICENSE OF [facility] Stop: 07/11/23 15:29 Selexipag (Selexipag 1600 Mcg Tablet) 1 each PO BID@0300,1500 ON LICENSE OF [facility] Stop: 07/11/23 14:59 Sildenafil Citrate (Sildenafil Citrate 20 Mg Tablet) 40 mg PO TID MISSY Stop: 07/11/23 20:59 Vibegron (Vibegron 75 Mg Tab) 75 mg PO DAILY MISSY Stop: 07/12/23 08:59 ECG Additional Comments: I have independently reviewed and interpreted patient's admitting EKG which revealed: sinus tachycardia, QTC 447ms COVID-19 Results Results COVID-19 Adm Lab Results: RBC 3.74 M/uL (4.20-5.40) L 06/11/23 WBC 9.77 K/ul (4.8-10.8) 06/11/23 Hgb 11.2 g/dl (12.0-16.0) L 06/11/23 Hct 35.0 % (37.0-47.0) L 06/11/23 Plt Count 180 K/uL (130-400) 06/11/23 Neutrophils (%) (Auto) 82.1 % 06/11/23 Lymphocytes (%) (Auto) 10.4 % 06/11/23 Monocytes # (Auto) 0.62 K/uL (0.11-0.59) H 06/11/23 Eosinophils # (Auto) 0.07 K/uL (0.00-0.50) 06/11/23 Immature Granulocyte % (Auto) 0.4 % 06/11/23 Neutrophils # (Auto) 8.01 K/uL (1.40-6.50) H 06/11/23 Lymphocytes # (Auto) 1.02 K/uL (1.20-3.40) L 06/11/23 Monocytes # (Auto) 0.62 K/uL (0.11-0.59) H 06/11/23 Eosinophils # (Auto) 0.07 K/uL (0.00-0.50) 06/11/23 Basophils # (Auto) 0.01 K/uL (0.00-0.20) 06/11/23 Immature Granulocyte # (Auto) 0.04 K/uL (0.01-0.20) 4 Na 135 mmol/L (136-145) L 06/11/23 K 4.0 mmol/L (3.5-5.1) 06/11/23 Cl 94 mmol/L (98-107) L 06/11/23 CO2 31 mmol/L (21-32) 06/11/23 Anion Gap 10 (3-11) 06/11/23 BUN 27 mg/dl (6-23) H 06/11/23 Creatinine 1.27 mg/dl (0.6-1.2) H 06/11/23 BUN/Creatinine Ratio 21.3 (10-20) H 06/11/23 Glucose Level 120 mg/dl (70-99(Fasting)) H 06/11/23 Ca 9.3 mg/dl (8.6-10.3) 06/11/23 Total Bilirubin 0.7 mg/dl (0.2-1.0) 06/11/23 AST/SGOT 10 U/L (13-39) L 06/11/23 ALT/SGPT 12 U/L (7-52) 06/11/23 Alkaline Phosphatase 68 U/L (34-104) 06/11/23 Total Protein 7.3 gm/dl (6.0-8.3) 06/11/23 Albumin 4.1 gm/dl (3.4-5.0) 06/11/23 Globulin 3.2 gm/dl (2.5-4.0) 06/11/23 Albumin/Globulin Ratio 1.3 (0.9-2) 06/11/23 PTT 29 Seconds (21-31) 06/11/23 INR 1.1 (0.9-1.1) 06/11/23 Adenovirus (PCR) Not Detected (NotDetected) 06/11/23 B. parapertussis DNA (PCR) Not Detected (NotDetected) 07/29 B. pertussis DNA (PCR) Not Detected (NotDetected) 06/11/23 C. pneumoniae DNA (PCR) Not Detected (NotDetected) 4 Coronavirus Type OC43 (PCR) Not Detected (NotDetected) 07/29 Coronavirus Type HKU1 (PCR) Not Detected (NotDetected) 07/29 Coronavirus Type 229E (PCR) Not Detected (NotDetected) 07/29 COVID-19 PCR Not Detected (NotDetected) 06/11/23 Coronavirus Type NL63 (PCR) Not Detected (NotDetected) 07/29 Human Metapneumovirus (PCR) Not Detected (NotDetected) 07/29 Influenza Virus Type A (PCR) Not Detected (NotDetected) Influenza Virus Type B (PCR) Not Detected (NotDetected) M. pneumoniae (PCR) Not Detected (NotDetected) 06/11/23 Parainfluenza Type 1 (PCR) Not Detected (NotDetected) 07/29 Parainfluenza Type 2 (PCR) Not Detected (NotDetected) 07/29 Parainfluenza Type 3 (PCR) Not Detected (NotDetected) 07/29 Parainfluenza Type 4 (PCR) Not Detected (NotDetected) 07/29 RSV (PCR) Not Detected (NotDetected) 06/11/23 Enterovirus/Rhinovirus (PCR) Not Detected (NotDetected) Chest X-Ray 06/11/23 Code Status & VTE Plan Code Status FULL CODE VTE Prophylaxis Plan VTE Prophylaxis will be ordered: Yes Supervising Physician Co-Signing Physician Notes I have seen and examined the patient and have discussed the case with the provider above. I have reviewed the advanced practitioner's documentation, and I agree with, and take responsibility for that plan of care. 58 yo medically complex lady presenting with persistent GI symptoms and progressive fatigue, chills and generalized malaise. She has a h/o dermatomyositis for which she has been on chronic prednisone therapy. She has a history of secondary adrenal insufficiency related to this which puts her at risk for going into adrenal crisis when she is ill like now. Her symptoms are consistent with possible acute on chronic adrenal insufficiency in the setting of acute illness. She also has a h/o pituitary microadenoma with prior workup in 2016 showing no evidence of hyperfunction. Serial MRIs have shown this to be stable. She has been stable on her current dose of levothyroxine for central hypothyroidism per recent endocrine evaluation a couple of months ago. She is lethargic, sluggish when moving around but generally has good strength, mentating at baseline, appears very tired and worn out. She is reporting acute abdominal symptoms. Where this may be related to gastroenteritis, it may also be a sign of adrenal crisis. Nausea and vomiting may also be a reflection of this and she may not have an infection at all, in fact. Morbidly obese. VSS, cardiopulmonary exam is unremarkable. No increased respiratory distress. Abdomen is soft NTND. Labs/imaging/meds reviewed. Reviewed outpatient medical records. Will obtain TSH/FT4 now and cont with stress dose steroids with taper until patient is starting to feel improved. May consider consulting endocrinology for recs. Cont hydrocortisone and supportive care measures for acute gastroenteritis vs developing adrenal crisis awaiting thyroid function studies. Awaiting stool studies. Cont Synthroid per home regimen. Acute kidney injury present likely from poor PO intake, repeat BMP after fluids. Of note glucose has been checked and there is no sign of unexplained hypoglycemia. Cont PCU monitoring. DO Obdulio
[2023-06-11] MEDS: METOPROLOL TARTRATE 1 MG/ML VIAL IV STA (14:44)
[2023-06-11] MEDS: AMBRISENTAN PO SCH (15:48)
[2023-06-11] MEDS: SELEXIPAG 1600 MCG PO SCH (15:48)
[2023-06-11] MEDS ORDERED: CARBOHYDRATES FOR HYPOGLYCEMIA PO PRN (15:55)
[2023-06-11] MEDS ORDERED: GLUCOSE 10 TAB/TUBE PO PRN (15:55)
[2023-06-11] MEDS ORDERED: GLUCOSE 40% GEL 15 GM TUBE PO PRN (15:55)
[2023-06-11] MEDS ORDERED: GLUCAGON FOR INJ 1 MG VIAL SQ PRN (15:55)
[2023-06-11] MEDS ORDERED: DEXTROSE 50% 50 ML SYRINGE IV PRN (15:55)
--- NOTE | 2023-06-11 15:56 | CT Scan Report ---
CT OF THE ABDOMEN AND PELVIS WITHOUT CONTRAST CLINICAL HISTORY: Abdominal pain, vomiting and diarrhea. COMPARISON STUDY: CT of the abdomen and pelvis June 08, 2023. KUB performed earlier today. TECHNIQUE: Axial images of the abdomen and pelvis were obtained without IV contrast. Images were revi ewed in the axial, sagittal, and coronal planes. Automated exposure control was utilized for the pedro dy. A dose lowering technique was utilized adhering to the principles of ALARA. FINDINGS: Visualized portions of the lower chest demonstrate dilatation of the central pulmonary saw john and moderate cardiomegaly. There are trace bilateral pleural effusions. Subpleural opacities wit hin the lower lungs favor atelectasis. A 1.5 cm inferior left breast nodule is similar to CT of Octob er 182010. This is benign given stability. Evaluation of the abdomen and pelvis is suboptimal on th is unenhanced examination. No pneumatosis, free air or portal venous gas is present. Hyperdense mater ial within the gallbladder may reflect vicarious excretion of contrast from prior contrast enhanced C T. There is no biliary or pancreatic ductal dilatation. A small amount of abdominal and pelvic ascite s is similar to prior CT. Unenhanced images of the spleen, adrenal glands, kidneys and pancreas are u nremarkable. There is no hydronephrosis. Low-attenuation hepatic and renal lesions likely reflect cys ts within correlating with prior contrast enhanced CT. The appendix is normal. Moderate wall thickeni ng of several ileal loops with associated mesenteric stranding and a small amount of fluid is similar to CT of June 08, 2023. Colonic diverticulosis without evidence for acute diverticulitis. No transitio n point is identified to suggest a bowel obstruction. The appendix appendix is normal. IMPRESSION: 1. No significant change since CT of June 08, 2023. Persistent wall thickening of multiple ileal loops with associated mesenteric stranding and a small amount of ascites. The findings represent a nonspeci fic enteritis. No evidence for a bowel obstruction. No pneumatosis, free air or portal venous gas. 2. Colonic diverticulosis. No evidence for acute diverticulitis. 3. Cardiomegaly. Dilatation of the central pulmonary arteries which raises the possibility of pulmona ry arterial hypertension. ACT 112: Negative or not required by law. Electronically signed by: Dylon Gerardo M.D. 06/11/2023 3:55 PM
[2023-06-11] MEDS: SODIUM CHLORIDE 0.9% 1,000 ML IV SCH (17:02)
[2023-06-11] MEDS: predniSONE 5 MG TAB PO SCH (17:03)
[2023-06-11] MEDS: METOPROLOL TARTRATE 25 MG TAB PO SCH (17:03)
[2023-06-11] MEDS: INSULIN ASPART PER UNIT CHARGE SC SCH (17:13)
[2023-06-11] MEDS: Patient's HEIGHT &/or WEIGHT Needed SCH (19:28)
[2023-06-11] MEDS ORDERED: metroNIDAZOLE 500 MG/100 ML BAG IV SCH (20:00)
[2023-06-11] MEDS ORDERED: CIPROFLOXACIN / D5W 400 MG/200 ML BAG IV SCH (20:00)
[2023-06-11] MEDS: SILDENAFIL CITRATE 20 MG TABLET PO SCH (20:23)
[2023-06-11] MEDS: ENOXAPARIN INJ 40 MG/0.4 ML SYR SQ SCH (20:23)
[2023-06-11] MEDS: AMMONIUM LACTATE 12% LOTION 225 GM BTL EXT SCH (20:24)
[2023-06-11] MEDS: PIPERACILLIN/TAZOBACTAM 4.5 GM/100 ML BAG IV ONE (20:46)
[2023-06-11] MEDS: HYDROCORTISONE SOD 50 MG in SYRINGE 0 ML IV SCH (20:54)
[2023-06-11 21:36] LABS: Troponin I High Sensitivity 30.9 pg/ml (0-14)
[2023-06-11 22:24] LABS: Thyroid Stimulating Hormone < 0.010 uIu/ml (0.300-4.500)
[2023-06-11 23:01] LABS: T4 Free Thyroxine 1.11 ng/dl (0.61-1.60)
[2023-06-12] MEDS: PIPERACILLIN/TAZOBACTAM 4.5 GM in DEXTROSE 5% MINI-B 100 ML IV SCH (02:04)
[2023-06-12] MEDS: ONDANSETRON INJ 2 MG/ML 2 ML VIAL IV PRN (02:18)
[2023-06-12] MEDS: ACETAMINOPHEN 325 MG TAB PO PRN (04:43)
[2023-06-12] MEDS: HYDROCORTISONE SOD 100 MG in SYRINGE 0 ML IV SCH (04:44)
--- NOTE | 2023-06-12 04:44 | Communication Note ---
Date of Service: June 12, 2023 Patient somewhat uncertain regarding Uptravi dosage after 3 AM dose administered as per RN. She may be taking more than she supposed to take as per patient. Patient requesting for medication dose to be clarified with [facility] pharmacy (special unit for pulmonary arterial hypertension) contact #[phone]. 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 Diarrhea notable medication side effect on review. Patient requesting for medication administration to be timed at 11 PM and 11 AM as she does at home once dose clarified. Will relay to AM provider.
[2023-06-12] MEDS: LEVOTHYROXINE SODIUM 112 MCG TABLET PO SCH (05:58)
--- NOTE | 2023-06-12 06:14 | Electrocardiogram Report ---
Test Reason : Blood Pressure : / mmHG Vent. Rate : 112 BPM Atrial Rate : 112 BPM P-R Int : 170 ms QRS Dur : 084 ms QT Int : 328 ms P-R-T Axes : 068 106 070 degrees QTc Int : 447 ms Sinus tachycardia Right atrial enlargement Possible Right ventricular hypertrophy Nonspecific T wave abnormality Abnormal ECG When compared with ECG of 10-AUG-2015 10:31, Vent. rate has increased BY 44 BPM T wave inversion less evident in Anterior leads Confirmed by Akin Morales ([id number]) on 06/12/2023 6:14:05 AM Referred By: REFERRED SELF Confirmed By:Akin Morales
[2023-06-12] MEDS: ALUMINUM/MAGNESIUM SUSP 30 ML UDC PO PRN (07:41)
[2023-06-12 08:25] LABS: Hemoglobin 10.8 g/dl (12.0-16.0); Mean Corpuscular Hemoglobin 30.2 pg (25.0-34.0); Mean Corpuscular Hgb Conc 31.8 g/dL (32.0-36.0); Platelet Count 169 K/uL (130-400); RDW Standard Deviation 44.9 fL (36.4-46.3); Red Blood Count 3.58 M/uL (4.20-5.40); White Blood Count 10.43 K/ul (4.8-10.8)
[2023-06-12 08:44] LABS: BUN Creatinine Ratio 18.8 (10-20); Calcium 8.4 mg/dl (8.6-10.3); Creatinine Clr Calc Pharmacy 57.5 ml/min; Est GFR (African American) 61.8 ml/min; Est GFR (Non-African American) 53.4 ml/min; Magnesium 1.7 mg/dl (1.7-2.4); Phosphorus 3.6 mg/dl (2.5-4.9); Potassium 4.6 mmol/L (3.5-5.1)
[2023-06-12] MEDS: ATORVASTATIN 20 MG TAB PO SCH (08:48)
[2023-06-12] MEDS: VIBEGRON 75 MG TAB PO SCH (08:48)
[2023-06-12] MEDS: LORATADINE 10 MG TAB PO SCH (08:50)
[2023-06-12] MEDS: MoRPHine SULFATE 2 MG/ML CARP IV PRN (09:42)
[2023-06-12 11:04] LABS: Appearance Urine Cloudy (Clear); Bacteria Urine Automated None Seen (None Seen); Bilirubin Urine Negative (Negative); Blood Urine Trace (Negative); Cast Urine Automated 0-2 /lpf (0-2); Color Urine Yellow; Glucose Urine UA Negative (Negative); Ketones Urine 2+ (Negative); Leukocyte Esterase Urine 2+ (Negative); Nitrite Urine Negative (Negative); Protein Urine 1+ (Negative); RBC Urine Automated 0-2 /hpf (0-2); Specific Gravity Urine 1.022 (1.000-1.030); Urobilinogen Urine Negative (Negative); WBC Urine Automated >50 /hpf (0-5)
[2023-06-12 12:07] LABS: Cdiff Toxin B Gene (2yr or >) Positive Cdiff Gene (Neg)
[2023-06-12 12:49] LABS: Cdiff Antigen Positive; Cdiff Toxin A+B Negative Cdiff Toxin (Negative)
[2023-06-12 14:08] LABS: Adenovirus F 40/41 PCR Not Detected (NotDetected); Astrovirus PCR Not Detected (NotDetected); Campylobacter PCR Not Detected (NotDetected); Cryptosporidium PCR Not Detected (NotDetected); Cyclospora cayetanensis PCR Not Detected (NotDetected); Entamoeba histolytica PCR Not Detected (NotDetected); Enteroaggregative E.coli(EAEC) Not Detected (NotDetected); Enteropathogenic E.coli (EPEC) Not Detected (NotDetected); Enterotoxigenic E.coli (ETEC) Not Detected (NotDetected); Giardia lamblia PCR Not Detected (NotDetected); Norovirus GI/GII PCR Not Detected (NotDetected); Plesiomonas shigelloides PCR Not Detected (NotDetected); Rotavirus A PCR Not Detected (NotDetected); Salmonella PCR Not Detected (NotDetected); Sapovirus PCR Not Detected (NotDetected); Shiga-like Toxin E.coli (STEC) Not Detected (NotDetected); Shigella/Enteroinvasive E.coli Not Detected (NotDetected); Vibrio cholerae PCR Not Detected (NotDetected); Vibrio species PCR Not Detected (NotDetected); Yersinia enterocolitica PCR Not Detected (NotDetected)
--- NOTE | 2023-06-12 15:01 | Cardiology Consultation ---
Date of Consultation June 12, 2023 Assessment & Plan (1) Atypical chest pain: (2) Gastroenteritis: (3) Dehydration: (4) ESTEPHANIE (acute kidney injury): (5) Nausea vomiting and diarrhea: (6) Pulmonary hypertension: (7) Chronic respiratory failure with hypoxia, on home O2 therapy: (8) Sinus tachycardia: Plan Nausea, vomiting, diarrhea, atypical chest pain - January 2023 coronary angiography with no significant obstructive coronary artery disease. - EKG without acute change - Minimal, flat, troponin elevation; non-MD cause - likely secondary to critical illness, tachycardia, underlying pulmonary disease Multifactorial tachycardia (hyperthyroidism, UTI, dehydration, pulmonary disease, anemia) Recommendations: Reduce Selexipag (Uptravi) dosing to the previously tolerated dose, 1,400 mcg twice a day Correct hyperthyroidism as per endocrinology Change metoprolol tartrate to metoprolol succinate, same dosing for now. Refer for resting echocardiography Continue to hold furosemide and spironolactone I spent a total of 75 minutes on the date of service in preparation, delivery, and documentation of the care provided to this patient excluding any time spent in the performance of separately billed services. This visit was a split-shared visit with the substantive portion of the medical decision making performed by the supervising paperboard machine operator/billing provider. Supervising Physician Co-Signing Physician Notes Patient was seen and personally examined. Current and past records reviewed. Full assessment and plan as outlined above I have reviewed the advanced practitioner's documentation, and I agree with, and take responsibility for that plan of care As above patient with complex underlying pulmonary issues including idiopathic severe pulmonary hypertension, mixed connective tissue disorder. Currently on multiple drug regimen for management of longstanding pulmonary hypertension. Plan as outlined above suspect medication induced complaints. Will change metoprolol to tartrate to metoprolol succinate for slightly better heart rate control but heart rate being driven by underlying pulmonary demands. Blood pressure controlled. Will likely need diuretics once GI concerns nausea vomiting resolved History of Present Illness Reason for Consultation: Chest pain, palpitations Requesting Physician: Dr. Reece Attending Physician: Dr. Reece History of Present Illness Complex 58-year-old female admitted to [facility] on June 11, 2023, returning to the ER with ongoing nausea, vomiting, diarrhea, and intermittent low-grade fever x [address] findings consistent with nonspecific enteritis. Patient received gentle IV fluid resuscitation and empiric pip/tazo. Furosemide and spironolactone held. Cardiology consultation requested due to chest pain and palpitations. Patient describes feeling as though she got ran over by a steam roller, stiffness in the chest. This has been present since initiation and with slow gradual up titration of Selexipag every two weeks. Five days prior to presentation patient inadvertently took double dose of Selexipag twice a day x 5 days (She was supposed to take 1600 mg BID and accidentally took 3200 mg BID x 5 days) - EKG on presentation revealed sinus tachycardia with ventricular rate of 112 bpm, with right atrial enlargement, right ventricular hypertrophy, nonspecific T wave abnormality, QTc 447 ms. - High-sensitivity troponin minimally elevated as follows: 15.4 -> 24.1-> 30.9-> 16.7 pg/mL - B-type natriuretic peptide 243 pg/mL. - Chest x-ray was technically limited, appearing to reveal cardiomegaly, elevated right hemidiaphragm, bibasilar linear densities suggesting subsegmental atelectasis. - Telemetry throughout hospitalization reveals sinus/sinus tachycardia with heart rates in the 90s to 110 bpm range. Patient chronically prescribed metoprolol to tartrate 25 mg twice per day. - Hemoglobin has gradually trended down from 12.0 g/dL on admission to 10.8 g/ dL. - TSH was less than 0.010 with a free T4 of 1.15 January 2023 Cardiac Catheterization revealed systemic PAP, high PVR. No coronary fistula to PA. Possible tiny fistula to LV. See below. 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 Olivas Type 2 diabetes mellitus Stage II chronic kidney disease Morbid Obesity Central hypothyroidism Dyslipidemia Family History: Not notable for CAD Social History: Nonsmoker. No alcohol. No illegal drug use. Born in [facility]. Lived in [place] since 1973. Allergies Allergy/AdvReac Type Severity Reaction Status Date / Time chlorhexidine Allergy Mild BURNING, Verified 06/11/23 14:38 STINGING, RED RASH aspirin Allergy Unknown AVOIDS Verified 06/11/23 14:38 SECONDARY TO MEDS/MEDICAL CONDITIONS TIGIST Inhibitors AdvReac Intermediate SEVERE Verified 06/11/23 14:38 COUGH NSAIDS (Non-Steroidal AdvReac Unknown AVOIDS Verified 06/11/23 14:38 Anti-Inflamma SECONDARY TO MEDS/MEDICAL CONDITIONS Home Medications Medication Instructions Recorded Confirmed Type atorvastatin 20 mg tablet 20 mg PO QAM 05/29/18 06/11/23 History diclofenac sodium 1 % topical gel 2 g topical QID PRN joint pain 05/29/18 06/11/23 History (Voltaren) docusate sodium 100 mg capsule 100 mg PO PM 05/29/18 06/11/23 History (Colace) fluticasone propionate 50 2 spray intranasal DAILY PRN Nasal 05/29/18 06/11/23 History mcg/actuation nasal Congestion spray,suspension (Flonase Allergy Relief) furosemide 20 mg tablet 20 mg PO DAILY 05/29/18 06/12/23 History iron,carbonyl 65 mg-vitamin C 125 1 tab PO PM 05/29/18 06/11/23 History mg tablet,delayed release (Vitron-C) loratadine 10 mg tablet 10 mg PO QAM 05/29/18 06/11/23 History metoprolol tartrate 25 mg tablet 25 mg PO BID 05/29/18 06/11/23 History prednisone 5 mg tablet 5 mg PO QAM 05/29/18 06/11/23 History sildenafil (pulm.hypertension) 20 40 mg PO TID 05/29/18 06/11/23 History mg tablet (Revatio) spironolactone 25 mg tablet 50 mg PO QAM 05/29/18 06/11/23 History levothyroxine 112 mcg tablet 112 mcg PO DAILYBB 07/26/20 06/11/23 History ammonium lactate 12 % lotion 1 applic topical BID 01/10/23 06/11/23 History ambrisentan 10 mg tablet (Letairis) 10 mg PO DAILY 06/08/23 06/11/23 History ipratropium bromide 42 mcg (0.06 2 spray intranasal BID 06/08/23 06/11/23 History %) nasal spray ondansetron 4 mg disintegrating 4 mg PO Q6H PRN nausea and 06/08/23 06/11/23 Rx tablet vomiting #14 tabs selexipag 1,600 mcg tablet 1,600 mcg PO BID 06/08/23 06/11/23 History (Uptravi) vibegron 75 mg tablet 75 mg PO DAILY 06/11/23 06/11/23 History Patient History Medical History (Updated 06/12/23 @ 15:31 by Chris Li) History of central line-associated bloodstream infection (CLABSI) Osteoarthritis History of end stage renal disease "acute"--on dialysis for awhile after central line infection, no issues now GERD (gastroesophageal reflux disease) Hypothyroidism Polymyositis Anemia Migraine Chronic cor pulmonale Chronic respiratory failure with hypoxia Poor historian Congestive heart failure Hypertension Hyperlipidemia Restrictive lung disease Sleep apnea bipap with 3L On home oxygen therapy continuous--3-4L during the day and 3L at night Surgical History Status post PICC central line placement Status post insertion of dialysis catheter removed after renal disease resolved History of colonoscopy History of tooth extraction History of cardiac cath --no stents Family History Mother Family history of reaction to anesthesia difficulty waking, nausea/vomiting Family history of diabetes mellitus Sister Family history of diabetes mellitus Social History Smoking Status: Never smoker Second Hand Exposure: No; Do You Dip or Chew Tobacco: No; Hx Alcohol Use: No Hx Substance Use: No Preferred Language: Kyrgyz Communication Ability: Effective Chief Contract Officer Required: No Beliefs That Will Affect Care: None marital status: Single Current Living Situation: Alone Current Living Situation Comment: Lives with father Feels Safe at Home: Yes Safety Concerns: Feels Safe At This Time Assistive Devices: BiPap, Oxygen - Continuous and Walker Review of Systems Review of Systems: Positive review of systems Physical Exam Physical Exam: General: A&Ox3. NAD. Fatigued. HENT: Normocephalic. Atraumatic. Eyes: PER. Conjunctiva pink, sclera pale. Neck: No carotid bruits. No JVD. Heart: Regular at 100 bpm. Soft systolic murmur at the LLSB. No diastolic murmur. No rub. Lungs: Diminished throughout. Absent breath sounds at the right base. No wheeze. Abdomen: +BS. Soft. No organomegaly. Extremities: Minimal chronic indurated edema. Stasis changes. No clubbing. Limited neurological examination is without focal deficits. Pulses: radial=2/4, posterior tibial=1/4. Results & Data Vital Signs (Past 12 Hours) Vital Signs Temp Pulse Resp BP Pulse Ox O2 Del Method O2 Flow Rate 06/12/23 13:47 117/66 06/12/23 11:17 36.4 C L 111 H 20 100/50 L 97 Nasal Cannula 4 06/12/23 08:45 115/65 06/12/23 07:28 36.8 C 106 H 19 98/55 L 97 Nasal Cannula 4 Laboratory Results Cardiac Enzymes 06/11/23 06/11/23 06/12/23 Range/Units 15:59 20:54 06:38 Troponin I High Sens 24.1 H 30.9 H 16.7 H D (0-14) pg/ml CBC 06/12/23 Range/Units 08:02 WBC 10.43 (4.8-10.8) K/ul RBC 3.58 L (4.20-5.40) M/uL Hgb 10.8 L (12.0-16.0) g/dl Hct 34.0 L (37.0-47.0) % Plt Count 169 (130-400) K/uL Comprehensive Metabolic Panel 06/12/23 Range/Units 08:02 Sodium 136 (136-145) mmol/L Potassium 4.6 (3.5-5.1) mmol/L Chloride 98 (98-107) mmol/L Carbon Dioxide 25 (21-32) mmol/L BUN 21 (6-23) mg/dl Creatinine 1.12 (0.6-1.2) mg/dl Glucose 132 H (70-99(Fasting)) mg/dl Calcium 8.4 L (8.6-10.3) mg/dl Intake and Output 06/12/23 06/12/23 06/12/23 06:59 14:59 22:59 Intake Total 250 / 1350 1360 / 1360 Balance 250 / 1050 1360 / 1360 Intake: IV 100 / 1200 1000 / 1000 Piperacillin/Tazobactam 4.5 gm 100 / 100 In Dextrose 5% Mini-B 100 ml @ 25 mls/hr IV Q8H [facility] Rx#: [id number] Sodium Chloride 0.9% 1,000 ml @ 1000 / 1000 125 mls/hr IV .Q8H [facility] Rx#: [id number] Oral 150 / 150 360 / 360 Other: # Unmeasured Voids 1 Weight 98.8 kg Diagnostic Findings January 10, 2023 Cardiac Catheterization ([facility], Dr. Mccracken): Indication: Pulmonary Hypertension. Prior question of left main to pulmonary artery fistula. Access: 6Fr right radial artery under ultrasound guidance; 6Fr right CFV Catheters: 6Fr Roland mccartney, diagnostic JL4, JL4 guide Findings: LM - Large caliber, no significant stenosis. High flow and coronary arteries difficult to fill with injection but no evidence of coronary fistula LAD -large caliber, tortuous, no significant stenosis. Distal vessel wraps around apex. Gives off a large diagonal without significant disease. High flow, difficult to fill. Faint contrast noted in LV with left-sided injection. Suspect related to AI but cannot rule out small coronary to LV fistula. Circumflex -large caliber, no significant stenosis. RCA -dominant, large caliber, no significant stenosis. Large PDA, PLB without significant disease RA 17 RV 109/18 PA 106/40 (66) LVEDP 13 PaSat 59% AoSat 88% Lisa CO/CI 6.1/3.1 Thermo CO/CI 6.3/3.2 TPG 53 PVR 8.5 Wood Unit Summary: 1. Severe pulmonary hypertension (precapillary). 2. Normal left-sided filling pressures 3. Elevated right-sided filling pressure 4. Normal cardiac output 5. No significant obstructive coronary artery disease. 6. No angiographic evidence of LMCA to PA fistula. Large major epicardial coronary arteries with high flow.
[2023-06-12] MEDS: SELEXIPAG PO SCH (15:06)
[2023-06-12] MEDS: SODIUM CHLORIDE 0.9% 1,000 ML IV SCH (15:08)
--- NOTE | 2023-06-12 15:13 | Hospitalist Progress Note ---
Date of Service June 12, 2023 Assessment & Plan (1) Gastroenteritis: (2) Chronic respiratory failure with hypoxia, on home O2 therapy: (3) Dehydration: (4) Secondary adrenal insufficiency: Plan This is a 58-year-old female who has a significant past medical history of chronic respiratory failure with hypoxia and hypercapnia, chronic cor pulmonale, idiopathic pulmonary arterial hypertension, restrictive lung disease, BiPAP dependence, T2DM, central hypothyroidism, mixed hyperlipidemia, dermatomyositis on chronic steroid therapy who presents to ED secondary to persistent nausea, vomiting and diarrhea. Gastroenteritis Suspected Uptriva Overdose --POA Less likely adrenal insufficiency but can not rule out Dehydration Acute kidney injury--POA Patient admits to taking Uptriva 3200mcg instead of 1600mcg unintentional for the last 6 days -- CT ABD: No significant change since CT of June 08, 2023. Persistent wall thickening of multiple ileal loops with associated mesenteric stranding and a small amount of ascites. The findings represent a nonspecific enteritis. No evidence for a bowel obstruction. No pneumatosis, free air or portal venous gas. Colonic diverticulosis. No evidence for acute diverticulitis. Cardiomegaly. Dilatation of the central pulmonary arteries which raises the possibility of pulmonary arterial hypertension. --Stool PCR positive for C. difficile gene, negative otherwise -- Random cortisol >60 -- Ongoing nausea, vomiting, diarrhea likely due to Uptriva -- Will discuss with her primary rn transitional care , [facility]--waiting for call back --Continue IV fluids, zosyn for now --Advance diet as tolerated --Antiemetics as needed --Titrate down IV steroids --Discussed with endocrinology Advised to titrate down IV steroids quickly to prednisone 10mg daily (higher than her home dose) and can discharge on 5mg daily prednisone --Monitor renal function, avoid nephrotoxic agents as able Abnormal urine analysis Rule out UTI Urine culture pending Empirically on Zosyn as above Atypical chest pain/Palpitations Palpitations Mild troponin elevation--likely demand Ischemia Sinus Tachycardia H/O Idiopathic pulmonary hypertension EKG showed sinus tachycardia, right atrial enlargement, nonspecific T wave abnormality. On Selexipag and Ambrisentan--continue Continue Metoprolol Cardiology consulted Abnormal thyroid function test H/O Central Hypothyroidism TSH < 0.010 Free T4 1.11 Discussed with endocrinology today Continue current dose of 112 mcg levothyroxine daily Can follow-up with endocrinology as outpatient Chronic hypoxic respiratory failure with hypercapnia on 3 L at baseline Chronic cor pulmonale Idiopathic pulmonary arterial hypertension Restrictive lung disease BiPAP dependent Patient follows with [facility] pulmonary hypertension clinic She also follows pulmonary and sleep medicine in [place] Continue Letairis, Uptravi and Revatio continue oxygen supplementation on 3L at baseline Lasix, Aldactone on hold given ongoing diarrhea DM II A1C 6.7 diet controlled Continue insulin while hospitalized Monitor BGs Dermatomyositis chronic prednisone therapy Hold p.o. prednisone while on IV hydrocortisone HLD continue statin DVT Px: SQ Lovenox Code Status FULL CODE Admission and Anticipated Discharge Date Admission Date: June 11, 2023 Subjective Patient is seen and examined at bedside States having generalized body ache, periumbilical abdominal discomfort, generalized weakness and tiredness Also reports nausea, vomiting and diarrhea Reports associated palpitations, chest tightness No other complaints Review of Systems Review of Systems: All systems reviewed & are unremarkable except as noted in Subjective Physical Exam Physical Exam: Physical Exam: Vitals signs as noted above General Appearance:Obese, mild distress Head: normocephalic, Atraumatic Eyes: normal inspection, EOMI Neck: supple, Trachea midline Respiratory/Chest: Normal breath sounds, +basal crackles, No accessory muscle use Cardiovascular: S1, S2, No murmur,+Tachycardia Abdomen/GI:Soft, +mild tender, protuberant, No guarding or rigidity, Bowel sounds present Extremities/Musculoskeletal:normal inspection, no edema, +Chronic venous stasis changes Neurologic/Psych:AAOX3, grossly no focal neurological deficits Skin: normal color, warm Results & Data Results & Data Vital Signs (Past 12 Hours) Vital Signs Temp Pulse Resp BP Pulse Ox O2 Del Method O2 Flow Rate 06/12/23 13:47 117/66 06/12/23 11:17 36.4 C L 111 H 20 100/50 L 97 Nasal Cannula 4 06/12/23 08:45 115/65 06/12/23 07:28 36.8 C 106 H 19 98/55 L 97 Nasal Cannula 4 Laboratory Results Short CBC 06/12/23 Range/Units 08:02 WBC 10.43 (4.8-10.8) K/ul Hgb 10.8 L (12.0-16.0) g/dl Hct 34.0 L (37.0-47.0) % Plt Count 169 (130-400) K/uL BMP 06/12/23 08:02 Sodium 136 Potassium 4.6 Chloride 98 Carbon Dioxide 25 BUN 21 Creatinine 1.12 Glucose 132 H Calcium 8.4 L Urine 06/12/23 Range/Units Unknown Urine Color Yellow Urine Appearance Cloudy A (Clear) Urine pH 5.0 (4.5-7.5) Ur Specific [place] 1.022 (1.000-1.030) Urine Protein 1+ H (Negative) Urine Glucose (UA) Negative (Negative)
--- NOTE | 2023-06-12 16:16 | Communication Note ---
Date of Service: June 12, 2023 Received a call from 's [facility] Office --RN: Harmony ([phone]) Ok to reduce Uptravi to 1400mcg BID if unable to tolerate 1600mcg and can up titrate back to 1600mcg BID as able. Can not stop the medicine. Discussed with , will change Metoprolol tartrate to Metoprolol succinate 25mg BID for better rate control.
[2023-06-12] MEDS ORDERED: HYDROCORTISONE SOD 75 MG in SYRINGE 0 ML IV SCH (21:00)
[2023-06-12] MEDS: HYDROCORTISONE SOD 50 MG in SYRINGE 0 ML IV SCH (21:06)
[2023-06-12] MEDS: METOPROLOL SUCC 25MG EXT REL TAB PO SCH (21:07)
[2023-06-12] MEDS ORDERED: SELEXIPAG PO SCH (23:00)
[2023-06-12] MEDS: IPRATROPIUM BROMIDE NEB SOLN 0.02% 0.5MG/2.5ML VIAL INH STA (23:25)
[2023-06-12] MEDS: LEVALBUTEROL 1.25 MG/3 ML NEB NEB STA (23:25)
[2023-06-13] MEDS: MAGNESIUM SULFATE / D5W 1 GM/100 ML BAG IV SCH
[2023-06-13 00:05] LABS: Base Excess ABG 0.7 mEq/L (-9-1.8); HCO3 ABG 30 mmol/L (19-24); Oxygen Saturation ABG 95.9 % (90-95); PCO2 ABG 70 mmHg (35-46); PO2 ABG 82 mmHg (80-95); pH ABG 7.24 (7.35-7.45)
[2023-06-13 00:36] LABS: Allen Test Pos (Pos)
[2023-06-13] MEDS: FUROSEMIDE INJ 20 MG/2 ML VIAL IV ONE (01:16)
[2023-06-13] MEDS: PROMETHAZINE HCL 6.25 MG in SODIUM CHLORIDE 0.9% 50 ML IV STA (01:16)
[2023-06-13 01:43] LABS: Base Excess ABG 0.1 mEq/L (-9-1.8); HCO3 ABG 28 mmol/L (19-24); Oxygen Saturation ABG 95.9 % (90-95); PCO2 ABG 60 mmHg (35-46); PO2 ABG 73 mmHg (80-95); pH ABG 7.28 (7.35-7.45)
[2023-06-13 01:47] LABS: Allen Test Pos (Pos)
[2023-06-13] MEDS ORDERED: LEVOTHYROXINE SODIUM 100 MCG TABLET PO SCH (06:30)
[2023-06-13] MEDS: LEVOTHYROXINE SODIUM 112 MCG TABLET PO SCH (06:39)
--- NOTE | 2023-06-13 07:13 | XRay Report ---
XR chest 1V portable CLINICAL HISTORY: low o2 TECHNIQUE: Single frontal radiograph of the chest was obtained. Comparison: Comparison is made to chest radiograph 06/11/2023 FINDINGS: No lines and tubes are seen. Cardiomegaly is noted. Lungs are underinflated. Pulmonary vascular promi nence is seen. No evidence of pleural effusion or pneumothorax. IMPRESSION: Cardiomegaly and mild pulmonary edema. ACT 112: Negative or not required by law. Electronically signed by: Olu Arnold M.D. 06/13/2023 7:12 AM
[2023-06-13] MEDS: ALBUMIN 25% 12.5 GM/50 ML VIAL IV ONE (07:25)
[2023-06-13 07:41] LABS: Hematocrit (blood only) 30.7 % (37.0-47.0); Hemoglobin 9.6 g/dl (12.0-16.0); Mean Corpuscular Hemoglobin 30.1 pg (25.0-34.0); Mean Corpuscular Hgb Conc 31.3 g/dL (32.0-36.0); Mean Corpuscular Volume 96.2 fL (80.0-100.0); Mean Platelet Volume 9.8 fL (9.4-12.4); Platelet Count 159 K/uL (130-400); RDW Standard Deviation 45.6 fL (36.4-46.3); Red Blood Count 3.19 M/uL (4.20-5.40); White Blood Count 8.93 K/ul (4.8-10.8)
[2023-06-13 07:59] LABS: Base Excess VBG 2.4 mEq/L; HCO3 VBG 31 mmol/L; Oxygen Saturation VBG 94.6 %; PCO2 VBG 64 mmHg (38-50); PO2 VBG 69 mmHg; pH VBG 7.29 (7.36-7.41)
[2023-06-13 08:23] LABS: BUN Creatinine Ratio 17.1 (10-20); Calcium 8.3 mg/dl (8.6-10.3); Est GFR (African American) 58.7 ml/min; Est GFR (Non-African American) 50.6 ml/min; Potassium 4.1 mmol/L (3.5-5.1)
[2023-06-13 08:41] LABS: Base Excess ABG 1.6 mEq/L (-9-1.8); HCO3 ABG 30 mmol/L (19-24); Oxygen Saturation ABG 91.9 % (90-95); PCO2 ABG 62 mmHg (35-46); PO2 ABG 61 mmHg (80-95); pH ABG 7.29 (7.35-7.45)
[2023-06-13 09:06] LABS: Allen Test Pos (Pos)
--- NOTE | 2023-06-13 10:56 | Pulmonary Consultation ---
Date of Consultation June 13, 2023 Assessment & Plan (1) Pulmonary hypertension: (2) Chronic respiratory failure with hypoxia: (3) Sleep apnea: (4) Difficult airway: Plan IMPRESSION: 58-year-old female with an unfortunate history of idiopathic pulmonary hypertension, obstructive sleep apnea, chronic respiratory failure with hypoxia, and morbid obesity who presents in the setting of complaints of chest discomfort with associated nausea, vomiting, and diarrhea. Pulmonary medicine consulted for patient's ongoing use of BiPAP. RECOMMENDATIONS: 1. Pulmonary hypertension - Patient with prior diagnosis of which she follows with both [facility] pulmonary and sleep as well as the pulmonary hypertension clinic at [facility]. Unfortunately, patient is now requiring 3 separate medications for the management of her pulmonary hypertension. Additionally, despite these medications, the patient still requires the use of her BiPAP machine through a majority of some days to aid in her breathing. Patient is essentially maximized on therapy from a pulmonary hypertension perspective and I would have nothing else to provide for the patient at this time. Thankfully, she appears as though she is at her relative baseline at this point. She is not requiring escalating oxygen. She can continue with BiPAP as she sees fit. Her pulmonary hypertension specialist had been contacted and adjustments have been made to her medications. If the patient were to decline further from respiratory standpoint, consideration for transfer to [facility]'s pulmonary hypertension service given the complexity of her pulmonary status and high risk for rapid deterioration. 2. Chronic respiratory failure with hypoxia - In the setting of #1. Continue with supplemental oxygen. 3. Sleep apnea - Continue with home BiPAP settings. 4. Difficult airway - Per history, the patient required emergent tracheostomy placement in the setting of intubation. Goals of care may be to address the patient's CODE STATUS as she would represent not only difficult airway based on anatomy, her hemodynamics would be extremely difficult given her significant pulmonary hypertension associated hemodynamics. Thank you for allowing us to participate in the care of this patient. Supervising Physician Co-Signing Physician Notes Patient seen and examined. EMR reviewed. Discussed with GABRIELA and agree with assessment plan as noted above. The patient has severe pulmonary hypertension and is followed by the [facility] treated with pulmonary vasodilators. She has severe sleep disordered breathing followed by the [facility] sleep clinic as well. From a pulmonary standpoint, she appears to be at her baseline. Agree that if her clinical condition should worsen at all from a pulmonary vascular or pulmonary standpoint, transfer to a tertiary facility would be recommended as we do not have the capabilities to manage patients with this complex pulmonary vascular disease. If she remained stable and her other medical conditions can be effectively treated here, her primary service can continue to manage her. Recommend close coordination with her pulmonary hypertension center [facility]. Have little else to offer as she is effectively being treated with her outpatient medical regiment. She uses BiPAP fairly regularly during the day which certainly is reasonable. Would avoid intubation and mechanical ventilation in a patient with PA pressures to her degree as sedation may precipitate cardiovascular collapse. Feel free to contact us with additional questions or concerns History of Present Illness Reason for Consultation: Acute on chr RF with hypercapnea/hypoxia. PAH Requesting Physician: Dr. Moreau Attending Physician: Lucrecia Moreau MD History of Present Illness Patient is an unfortunate 58-year-old female with a significant past medical history of idiopathic pulmonary hypertension, chronic respiratory failure with hypoxia and hypercapnia, restrictive lung disease, type 2 diabetes, hypothyroidism, dermatomyositis, and hyperlipidemia who presented to the emergency department with complaints of chest discomfort and associated nausea, vomiting, and diarrhea. Pulmonary was consulted as she continues to require her BiPAP throughout the day. Patient was recently started on Uptravi in February by the pulmonary hypertension clinic at [facility]. She has been slowly uptitrated throughout the year. She states that with every up titration, she is experience chest discomfort which is transient and lasts for couple of days. Unfortunately, during recent change in her medication and increasing dose, she did not read the pill bottle closely and reports taking double the dose of the medication. She states that this was last Sunday which is temporally related to when the onset of symptoms of chest discomfort with associated abdominal bloating, nausea, and vomiting have occurred. She reports having intermittent symptoms since admission. She reports no worsening or decline in her breathing status. She wears 2 to 3 L at all times and does report that on occasion she wears her nasal BiPAP majority of the day when she is having trouble with her breathing. She offers no precipitating symptoms of upper respiratory symptoms including nasal congestion, cough, sore throat, hemoptysis, pleuritic pain, etc. Allergies Allergy/AdvReac Type Severity Reaction Status Date / Time chlorhexidine Allergy Mild BURNING, Verified 06/11/23 14:38 STINGING, RED RASH aspirin Allergy Unknown AVOIDS Verified 06/11/23 14:38 SECONDARY TO MEDS/MEDICAL CONDITIONS TIGIST Inhibitors AdvReac Intermediate SEVERE Verified 06/11/23 14:38 COUGH NSAIDS (Non-Steroidal AdvReac Unknown AVOIDS Verified 06/11/23 14:38 Anti-Inflamma SECONDARY TO MEDS/MEDICAL CONDITIONS Home Medications Medication Instructions Recorded Confirmed Type atorvastatin 20 mg tablet 20 mg PO QAM 05/29/18 06/11/23 History diclofenac sodium 1 % topical gel 2 g topical QID PRN joint pain 05/29/18 06/11/23 History (Voltaren) docusate sodium 100 mg capsule 100 mg PO PM 05/29/18 06/11/23 History (Colace) fluticasone propionate 50 2 spray intranasal DAILY PRN Nasal 05/29/18 06/11/23 History mcg/actuation nasal Congestion spray,suspension (Flonase Allergy Relief) furosemide 20 mg tablet 20 mg PO DAILY 05/29/18 06/12/23 History iron,carbonyl 65 mg-vitamin C 125 1 tab PO PM 05/29/18 06/11/23 History mg tablet,delayed release (Vitron-C) loratadine 10 mg tablet 10 mg PO QAM 05/29/18 06/11/23 History metoprolol tartrate 25 mg tablet 25 mg PO BID 05/29/18 06/11/23 History prednisone 5 mg tablet 5 mg PO QAM 05/29/18 06/11/23 History sildenafil (pulm.hypertension) 20 40 mg PO TID 05/29/18 06/11/23 History mg tablet (Revatio) spironolactone 25 mg tablet 50 mg PO QAM 05/29/18 06/11/23 History levothyroxine 112 mcg tablet 112 mcg PO DAILYBB 07/26/20 06/11/23 History ammonium lactate 12 % lotion 1 applic topical BID 01/10/23 06/11/23 History ambrisentan 10 mg tablet (Letairis) 10 mg PO DAILY 06/08/23 06/11/23 History ipratropium bromide 42 mcg (0.06 2 spray intranasal BID 06/08/23 06/11/23 History %) nasal spray ondansetron 4 mg disintegrating 4 mg PO Q6H PRN nausea and 06/08/23 06/11/23 Rx tablet vomiting #14 tabs selexipag 1,600 mcg tablet 1,600 mcg PO BID 06/08/23 06/11/23 History (Uptravi) vibegron 75 mg tablet 75 mg PO DAILY 06/11/23 06/11/23 History Patient History Medical History (Updated 06/13/23 @ 11:40 by Scottie Garcia PA-C) History of central line-associated bloodstream infection (CLABSI) Osteoarthritis History of end stage renal disease "acute"--on dialysis for awhile after central line infection, no issues now GERD (gastroesophageal reflux disease) Hypothyroidism Polymyositis Anemia Migraine Chronic cor pulmonale Chronic respiratory failure with hypoxia Poor historian Congestive heart failure Hypertension Hyperlipidemia Restrictive lung disease Sleep apnea bipap with 3L On home oxygen therapy continuous--3-4L during the day and 3L at night Surgical History Status post PICC central line placement Status post insertion of dialysis catheter removed after renal disease resolved History of colonoscopy History of tooth extraction History of cardiac cath --no stents Family History Mother Family history of reaction to anesthesia difficulty waking, nausea/vomiting Family history of diabetes mellitus Sister Family history of diabetes mellitus Social History Smoking Status: Never smoker Second Hand Exposure: No; Do You Dip or Chew Tobacco: No; Hx Alcohol Use: No Hx Substance Use: No Preferred Language: Kyrgyz Communication Ability: Effective Infrastructure Tech Required: No Beliefs That Will Affect Care: None marital status: Single Current Living Situation: Alone Current Living Situation Comment: Lives with father Feels Safe at Home: Yes Safety Concerns: Feels Safe At This Time Assistive Devices: BiPap, Oxygen - Continuous and Walker Review of Systems Review of Systems: A complete 10 point review of systems was reviewed with the patient with pertinent positives and negatives as per history of present illness. All else were negative. Physical Exam Physical Exam: VITAL SIGNS - Vital signs and nursing notes were reviewed. GENERAL - 58-year-old female appearing her stated age who is in no acute distress. Communicates well with provider and answers questions appropriately. SKIN - Dry skin without rashes. NOSE - Midline and without cyanosis. MOUTH/OROPHARYNX - Without perioral cyanosis. NECK - Neck with FROM. LUNGS -kyphotic appearing. Auscultation reveals diminished breath sounds at the bases. No wheezes or rales noted. CARDIAC - RRR with S1/S2. No murmur, rubs, or gallops appreciated. ABDOMEN - Abdominal inspection demonstrates an obese abdomen. BS normoactive all four quadrants. No tenderness, palpable masses, or ascites noted. EXTREMITIES - Nail clubbing not present. No peripheral cyanosis. Mild pretibial edema present. +3/5 radial palpated throughout. PSYCH - A&Ox3 and cooperates fully with examiner. Pt is very pleasant and interacts well with examiner. Results & Data Results & Data Vital Signs (Past 12 Hours) Vital Signs Temp Pulse Pulse Resp BP Pulse Ox O2 Del Method 06/13/23 10:49 102 H 06/13/23 10:13 116 H 27 H 98 06/13/23 07:37 BiPAP 06/13/23 07:34 36.6 C 109 H 20 107/53 L 96 BiPAP 06/13/23 07:12 107 H 20 98 06/13/23 03:35 105 H 20 94 06/13/23 02:45 36.6 C 102 H 18 110/87 97 BiPAP 06/13/23 01:11 20 117/68 BiPAP 06/13/23 00:45 103 H 24 97 06/12/23 23:25 103 H 18 94 CPAP O2 Flow Rate FiO2 06/13/23 10:49 06/13/23 10:13 30 06/13/23 07:37 40 06/13/23 07:34 06/13/23 07:12 40 06/13/23 03:35 40 06/13/23 02:45 06/13/23 01:11 8 40 06/13/23 00:45 40 06/12/23 23:25 3 PG Care Time/CCT Total # of Minutes Spent Total Time Spent with Patient: Total time spent is greater than 50% in coordination of care (as documented) at patient's floor/unit and/or counseling patient: Coding Level of Care Code 30072 INT INP/OBS CARE 3/75MIN Diagnoses Pulmonary hypertension I27.20 Chronic respiratory failure with hypoxia J96.11 Sleep apnea G47.30 Difficult airway T88.4XXA
--- NOTE | 2023-06-13 12:07 | Hospitalist Progress Note ---
Date of Service June 13, 2023 Assessment & Plan (1) Gastroenteritis: (2) Chronic respiratory failure with hypoxia, on home O2 therapy: (3) Dehydration: (4) Secondary adrenal insufficiency: Plan 58-year-old female who has a significant past medical history of chronic respiratory failure with hypoxia and hypercapnia, chronic cor pulmonale, idiopathic pulmonary arterial hypertension, restrictive lung disease, BiPAP dependence, T2DM, central hypothyroidism, mixed hyperlipidemia, dermatomyositis on chronic steroid therapy who presents to ED secondary to persistent nausea, vomiting and diarrhea. Gastroenteritis Suspected Uptriva Overdose --POA Less likely adrenal insufficiency but can not rule out Dehydration Acute kidney injury--POA Patient admits to taking Uptriva 3200mcg instead of 1600mcg unintentional for the last 6 days -- CT ABD: No significant change since CT of June 08, 2023. Persistent wall thickening of multiple ileal loops with associated mesenteric stranding and a small amount of ascites. The findings represent a nonspecific enteritis. No raven dence for a bowel obstruction. No pneumatosis, free air or portal venous gas. Colonic diverticulosis. No evidence for acute diverticulitis. Cardiomegaly. Dilatation of the central pulmonary arteries which raises the possibility of pulmonary arterial hypertension. --Stool PCR positive for C. difficile gene, negative otherwise -- Random cortisol >60 Continue antiemetics prn Symptoms more likely related to Uptriva overdose Possible gastroenteritis based on CT Dr Reece had discussed with her primary emergency physician , [facility] who manages her PAH. He recommends Ok to reduce Uptravi to 1400mcg-1600mcg BID but not to stop Patient is currently on 1600mcg BID Will stop antibiotics for now and monitor Dr Reece had discussed with endocrinology who advised to titrate down IV steroids quickly to prednisone 10mg daily (higher than her home dose) and can discharge on 5mg daily prednisone Continue titrating down steroids Urine culture: multiple mesha Antibiotics stopped as above Monitor off antibiotics Atypical chest pain/Palpitations Palpitations Mild troponin elevation--likely demand Ischemia Sinus Tachycardia H/O Idiopathic pulmonary hypertension EKG showed sinus tachycardia, right atrial enlargement, nonspecific T wave abnormality. On Selexipag and Ambrisentan--continue Continue Metoprolol [employer] recs noted. Consider resumption of diuretics once oral intake improves Abnormal thyroid function test H/O Central Hypothyroidism TSH < 0.[address] Reece had discussed with Tim who also recommends to continue current dose of 112 mcg levothyroxine daily Follow-up with endocrinology as outpatient Chronic hypoxic respiratory failure with hypercapnia on 3 L at baseline Chronic cor pulmonale Idiopathic pulmonary arterial hypertension Restrictive lung disease BiPAP dependent Patient follows with [facility] pulmonary hypertension clinic She also follows pulmonary and sleep medicine in [place] Continue Letairis, Uptravi and Revatio continue oxygen supplementation on 3L at baseline Lasix, Aldactone on hold given earlier diarrhea and poor compensation supervisor reported patient's home BIPAP may be faulty/nonfunctioning CM to look into that DM II A1C 6.7 Diet controlled Continue insulin per protocol while hospitalized Monitor BGs Dermatomyositis chronic prednisone therapy Hold p.o. prednisone while on IV hydrocortisone HLD continue statin DVT Px: SQ Lovenox Code Status FULL CODE I spent a total of 55 minutes coordinating, documenting and providing care for this patient excluding time spent in performance of separately billed services Admission and Anticipated Discharge Date Admission Date: June 11, 2023 Subjective Patient seen and examined. Reports fatigue, nausea. No vomiting today. Denies any diarrhea. Reports poor appetite. Denies cough. Reports dyspnea on exertion. Patient is dependent on BiPAP at night and intermittently throughout the day. Reports she uses 3 L at rest and 4 L of oxygen with exertion though had recently been upto 5L with her new concentrator Denied fever, chills Physical Exam Constitutional: Chronically ill looking Eyes: PERRL, conjunctivae normal, anicteric sclerae ENMT: On BIPAP Respiratory: On BIPAP Diminished breath sounds Cardiovascular: S1 S2 Gastrointestinal (Abdomen): normal bowel sounds, soft, nontender, no hepatosplenomegaly Musculoskeletal: Stasis changes Neurologic: PERRL, EOMI, accommodation nl, no face palsy, no dysarthria Psychiatric: AOX3, cooperative Results & Data Results & Data Vital Signs (Past 12 Hours) Vital Signs Temp Pulse Pulse Resp BP Pulse Ox O2 Del Method 06/13/23 11:33 36.9 C 108 H 20 118/62 94 BiPAP 06/13/23 10:49 102 H 06/13/23 10:13 116 H 27 H 98 06/13/23 07:37 BiPAP 06/13/23 07:34 36.6 C 109 H 20 107/53 L 96 BiPAP 06/13/23 07:12 107 H 20 98 06/13/23 03:35 105 H 20 94 06/13/23 02:45 36.6 C 102 H 18 110/87 97 BiPAP 06/13/23 01:11 20 117/68 BiPAP 06/13/23 00:45 103 H 24 97 O2 Flow Rate FiO2 06/13/23 11:33 06/13/23 10:49 06/13/23 10:13 30 06/13/23 07:37 40 06/13/23 07:34 06/13/23 07:12 40 06/13/23 03:35 40 06/13/23 02:45 06/13/23 01:11 8 40 06/13/23 00:45 40 Laboratory Results Abnormal lab results 06/12/23 06/12/23 06/12/23 Range/Units 16:18 20:11 23:57 RBC (4.20-5.40) M/uL Hgb (12.0-16.0) g/dl Hct (37.0-47.0) % MCHC (32.0-36.0) g/dL ABG pH 7.24 L (7.35-7.45) ABG pCO2 70 H (35-46) mmHg ABG pO2 (80-95) mmHg ABG HCO3 30 H (19-24) mmol/L ABG O2 Saturation 95.9 H (90-95) % VBG pH (7.36-7.41) VBG pCO2 (38-50) mmHg Glucose (70-99(Fasting)) mg/dl POC Glucose 153 H 175 H (70-99) mg/dl Calcium (8.6-10.3) mg/dl 06/13/23 06/13/23 06/13/23 Range/Units 01:33 07:12 07:21 RBC 3.19 L (4.20-5.40) M/uL Hgb 9.6 L (12.0-16.0) g/dl Hct 30.7 L (37.0-47.0) % MCHC 31.3 L (32.0-36.0) g/dL ABG pH 7.28 L (7.35-7.45) ABG pCO2 60 H (35-46) mmHg ABG pO2 73 L (80-95) mmHg ABG HCO3 28 H (19-24) mmol/L ABG O2 Saturation 95.9 H (90-95) % VBG pH 7.29 L (7.36-7.41) VBG pCO2 64 H (38-50) mmHg Glucose 129 H (70-99(Fasting)) mg/dl POC Glucose (70-99) mg/dl Calcium 8.3 L (8.6-10.3) mg/dl 06/13/23 06/13/23 06/13/23 Range/Units 07:31 08:28 11:30 RBC (4.20-5.40) M/uL Hgb (12.0-16.0) g/dl Hct (37.0-47.0) % MCHC (32.0-36.0) g/dL ABG pH 7.29 L (7.35-7.45) ABG pCO2 62 H (35-46) mmHg ABG pO2 61 L (80-95) mmHg ABG HCO3 30 H (19-24) mmol/L ABG O2 Saturation (90-95) % VBG pH (7.36-7.41) VBG pCO2 (38-50) mmHg Glucose (70-99(Fasting)) mg/dl POC Glucose 136 H 142 H (70-99) mg/dl Calcium (8.6-10.3) mg/dl
--- NOTE | 2023-06-13 12:44 | Cardiology Progress Note ---
Date of Service June 13, 2023 Assessment & Plan (1) Atypical chest pain: (2) Gastroenteritis: (3) Dehydration: (4) ESTEPHANIE (acute kidney injury): (5) Nausea vomiting and diarrhea: (6) Pulmonary hypertension: (7) Chronic respiratory failure with hypoxia, on home O2 therapy: (8) Sinus tachycardia: Plan Complex 58 year old female with underlying severe longstanding idiopathic pulmonary hypertension, mixed connective tissue disorder admitted with nausea, vomiting, diarrhea, atypical chest pain. January 2023 coronary angiography with no significant obstructive coronary artery disease. EKG without acute change. Minimal, flat, troponin elevation; non-MD cause - likely secondary to critical illness, tachycardia, underlying pulmonary disease. Patient with multifactorial (sinus) tachycardia (hyperthyroidism, UTI, dehydration, pulmonary disease, anemia) Recommendations: Consider resumption of oral diuretics in the next 1-2 days. Otherwise, recommendations as previously written. Please contact with any questions or concerns. I spent a total of 25 minutes on the date of service in preparation, delivery, and documentation of the care provided to this patient excluding any time spent in the performance of separately billed services. This visit was a split-shared visit with the substantive portion of the medical decision making performed by the supervising rn vascular/billing provider. Admission and Anticipated Discharge Date Admission Date: June 11, 2023 Supervising Physician Co-Signing Physician Notes Patient was seen and personally examined. Current and past records reviewed. Full assessment and plan as outlined above I have reviewed the advanced practitioner's documentation, and I agree with, and take responsibility for that plan of care As above patient with complex underlying pulmonary issues including idiopathic severe pulmonary hypertension, mixed connective tissue disorder. Currently on multiple drug regimen for management of longstanding pulmonary hypertension. Plan as outlined above suspect medication induced complaints. Nausea improved. Metoprolol succinate substituted for metoprolol tartrate. Patient uses diuretics on a as needed basis at home and resume after GI complaints of resolved and oral intake assured. Patient approaching baseline and may benefit from hospital discharge I spent a total of 20 minutes on the date of service in preparation, delivery, and documentation of the care provided to this patient excluding any time spent in the performance of separately billed services Subjective Patient seen and examined. Chart, medications and telemetry reviewed. Feeling some better today. "The morphine really helps." on BiPAP. Telemetry: Sinus tachycardia 100 to 120 bpm. Review of Systems Review of Systems: No chest pain. No palpitations. No increased fluid. No dizziness. Physical Exam Physical Exam: General: A&Ox3. NAD. BiPAP HENT: Normocephalic. Atraumatic. Eyes: PER. Conjunctiva pink, sclera pale. Neck: No overt JVD. Heart: Regular at 100 bpm. Soft systolic murmur at the LLSB. Lungs: Diminished throughout. No wheeze anteriorly. Abdomen: +BS. Soft. No organomegaly. Extremities: Thick legs without pitting edema, stasis changes. Limited neurological examination is without focal deficits. Pulses: Posterior tibial=1/4. Results & Data Vital Signs (Past 12 Hours) Vital Signs Temp Pulse Pulse Resp BP Pulse Ox O2 Del Method 06/13/23 11:33 36.9 C 108 H 20 118/62 94 BiPAP 06/13/23 10:49 102 H 06/13/23 10:13 116 H 27 H 98 06/13/23 07:37 BiPAP 06/13/23 07:34 36.6 C 109 H 20 107/53 L 96 BiPAP 06/13/23 07:12 107 H 20 98 06/13/23 03:35 105 H 20 94 06/13/23 02:45 36.6 C 102 H 18 110/87 97 BiPAP 06/13/23 01:11 20 117/68 BiPAP 06/13/23 00:45 103 H 24 97 O2 Flow Rate FiO2 06/13/23 11:33 06/13/23 10:49 06/13/23 10:13 30 06/13/23 07:37 40 06/13/23 07:34 06/13/23 07:12 40 06/13/23 03:35 40 06/13/23 02:45 06/13/23 01:11 8 40 06/13/23 00:45 40 Laboratory Results CBC 06/13/23 Range/Units 07:12 WBC 8.93 (4.8-10.8) K/ul RBC 3.19 L (4.20-5.40) M/uL Hgb 9.6 L (12.0-16.0) g/dl Hct 30.7 L (37.0-47.0) % Plt Count 159 (130-400) K/uL Comprehensive Metabolic Panel 06/13/23 Range/Units 07:21 Sodium 137 (136-145) mmol/L Potassium 4.1 (3.5-5.1) mmol/L Chloride 98 (98-107) mmol/L Carbon Dioxide 29 (21-32) mmol/L BUN 20 (6-23) mg/dl Creatinine 1.17 (0.6-1.2) mg/dl Glucose 129 H (70-99(Fasting)) mg/dl Calcium 8.3 L (8.6-10.3) mg/dl Intake and Output 06/12/23 06/13/23 06/13/23 22:59 06:59 14:59 Intake Total 350 / 2824.25 1114.25 / 2824.25 Output Total 300 / 300 Balance 350 / 2524.25 814.25 / 2524.25 Intake: IV 200 / 2194.25 994.25 / 2194.25 Magnesium Sulfate / D5w 1 gm In 200 / 200 100 ml @ 50 mls/hr IV Q2H [facility] Rx#:[id number] Piperacillin/Tazobactam 4.5 gm 200 / 300 100 / 300 In Dextrose 5% Mini-B 100 ml @ 25 mls/hr IV Q8H [facility] Rx#: [id number] Promethazine HCl 6.25 mg In 50.25 / 50.25 Sodium Chloride 0.9% 50 ml @ 201 mls/hr IV NOW [facility] Rx#: [id number] Sodium Chloride 0.9% 1,000 ml @ 644 / 644 80 mls/hr IV .[id number] [facility] Rx#: [id number] Oral 150 / 630 120 / 630 Output: Urine Amount (Catheter) 300 / 300 External 300 / 300 Other: # Unmeasured Voids 1 # Urine Diapers 1 Weight 98.7 kg
[2023-06-14 06:57] LABS: Hematocrit (blood only) 28.9 % (37.0-47.0); Hemoglobin 8.9 g/dl (12.0-16.0); Mean Corpuscular Hemoglobin 29.5 pg (25.0-34.0); Mean Corpuscular Hgb Conc 30.8 g/dL (32.0-36.0); Mean Corpuscular Volume 95.7 fL (80.0-100.0); Platelet Count 175 K/uL (130-400); RDW Coefficient of Variation 13.2 % (11.5-14.5); RDW Standard Deviation 46.4 fL (36.4-46.3); Red Blood Count 3.02 M/uL (4.20-5.40); White Blood Count 7.47 K/ul (4.8-10.8)
[2023-06-14 07:24] LABS: BUN Creatinine Ratio 18.1 (10-20); Calcium 8.4 mg/dl (8.6-10.3); Creatinine Clr Calc Pharmacy 54.1 ml/min; Est GFR (African American) 59.3 ml/min; Est GFR (Non-African American) 51.1 ml/min; Magnesium 2.1 mg/dl (1.7-2.4); Phosphorus 2.4 mg/dl (2.5-4.9); Potassium 3.8 mmol/L (3.5-5.1)
--- NOTE | 2023-06-14 12:37 | Discharge Summary ---
Date of Service June 14, 2023 Admission HPI Per Admitting Provider This is a 58-year-old female who has a significant past medical history of chronic respiratory failure with hypoxia and hypercapnia, chronic cor pulmonale, idiopathic pulmonary arterial hypertension, restrictive lung disease, BiPAP dependence, T2DM, central hypothyroidism, mixed hyperlipidemia, dermatomyositis on chronic steroid therapy who presents to ED secondary to persistent nausea, vomiting and diarrhea. Symptoms started approximately 5 days ago. She is complaining of abdominal cramping describing it is "Gremlins in her belly," nausea, vomiting and loose stool. She denies any sick contacts. She denies any documented fever but complains of being chilled and sweaty. She has chronic shortness of breath secondary to pulm hypertension and feels that this is at baseline. She currently feels like her heart rate is, "running out of her chest," and she can also feel it in her ears. Her last episode of vomiting was this morning. She has not had much to eat or drink in the last 5 days and describes her vomit as clear liquid. She is mostly incontinent of stool and urine at baseline. She is unsure if she had any black tarry stool. She has been able to take her medications but missed her dose last evening. Her last dose of metoprolol was around 3 AM. She is requesting her medications be time for now. She chronically wears a BiPAP at bedtime. She was seen and evaluated in the ER few days ago. CT scan of abdomen pelvis revealed a small bowel enteritis. She continues to have difficulty keeping food and fluid down and therefore he presented back to the ED. She lives alone. She denies any smoking or alcohol. Admission Exam Per Admitting Provider Constitutional: Chronically ill-appearing female, obese, vitals as above, NAD, sitting up in bed, pleasant, dyspneic on conversation Head: Normocephalic, Atraumatic Eyes: PERRL, conjunctivae normal, anicteric sclerae ENMT: external ear and nose normal, oropharynx normal Neck: trachea midline, no thyromegaly normal visual inspection Respiratory: increased Resp Effort, lungs clear to auscultation, no wheeze, rales, rhonchi. Normal insp/exp effort, no accessory muscle use Cardiovascular: tachycardic rate, reg rhythm, b/l venous stasis Vessels: no JVD or carotid bruit Chest: normal inspection of chest Abdomen: protuberant abd, TTP throughout, no rebound/guarding, soft, Musculoskeletal: no cyanosis or clubbing, AROM x4 Skin: no rashes, warm and dry mild turgor Neurologic: PERRL, EOMI, accommodation nl, no face palsy, no dysarthria CN's II-XI intact bilaterally and moves all extremities Psychiatric: A+Ox3, euthymic affect Lymphatic: no cervical or axillary lymphadenopathy : deferred Principal Diagnosis Nausea, vomiting Medication side effect Atypical chest pain Chronic respiratory failure with hypoxia Pulmonary hypertension Discharge Exam Constitutional + well hydrated; no acute distress Eyes PERRL, conjunctivae normal, anicteric sclerae ENMT external ear and nose normal, oropharynx normal Respiratory Diminished breath sounds In no respiratory distress Cardiovascular S1 S2 Gastrointestinal (Abdomen) normal bowel sounds, soft, nontender, no hepatosplenomegaly Musculoskeletal +stasis changes Neurologic PERRL, EOMI, accommodation nl, no face palsy, no dysarthria Psychiatric A+Ox3, euthymic affect Discharge Data Allergies Allergy/AdvReac Type Severity Reaction Status Date / Time chlorhexidine Allergy Mild BURNING, Verified 06/11/23 14:38 STINGING, RED RASH aspirin Allergy Unknown AVOIDS Verified 06/11/23 14:38 SECONDARY TO MEDS/MEDICAL CONDITIONS TIGIST Inhibitors AdvReac Intermediate SEVERE Verified 06/11/23 14:38 COUGH NSAIDS (Non-Steroidal AdvReac Unknown AVOIDS Verified 06/11/23 14:38 Anti-Inflamma SECONDARY TO MEDS/MEDICAL CONDITIONS Consultations 06/11/23 13:41 ED Decision to Admit Stat 06/12/23 10:38 Consult Cardiology Routine 06/13/23 10:30 Consult Pulmonology Routine Ordered Studies 06/11/23 14:53 CT Abd and Pelvis [CT abd pelvis wo con] Routine Hospital Course (1) Gastroenteritis: (2) Chronic respiratory failure with hypoxia, on home O2 therapy: (3) Dehydration: (4) Secondary adrenal insufficiency: Plan 58-year-old female who has a significant past medical history of chronic respiratory failure with hypoxia and hypercapnia, chronic cor pulmonale, idiopathic pulmonary arterial hypertension, restrictive lung disease, BiPAP dependence, T2DM, central hypothyroidism, mixed hyperlipidemia, dermatomyositis on chronic steroid therapy who presents to ED secondary to persistent nausea, vomiting and diarrhea. Gastroenteritis Suspected Uptriva Overdose --POA Less likely adrenal insufficiency but can not rule out Dehydration Acute kidney injury--POA Patient admits to taking Uptriva 3200mcg instead of 1600mcg unintentional for the last 6 days -- CT ABD: No significant change since CT of June 08, 2023. Persistent wall thickening of multiple ileal loops with associated mesenteric stranding and a small amount of ascites. The findings represent a nonspecific enteritis. No evidence for a bowel obstruction. No pneumatosis, free air or portal venous gas. Colonic diverticulosis. No evidence for acute diverticulitis. Cardiomegaly. Dilatation of the central pulmonary arteries which raises the possibility of pulmonary arterial hypertension. --Stool PCR positive for C. difficile gene, negative otherwise -- Random cortisol >60 Continue antiemetics prn Symptoms more likely related to Uptriva overdose Possible gastroenteritis based on CT Dr Reece had discussed with her primary kayaking instructor , [facility] who manages her PAH. He recommends Ok to reduce Uptravi to 1400mcg-1600mcg BID but not to stop Patient is currently on 1600mcg BID. Patient had been taking 3200mcg BID in error at home Advised to take only 1600mcg BID Got stress dose steroids inpatient but quickly titrated down to home prednisone on discharge per Endocrinology Urine culture: multiple mesha Empirical antibiotics started on admission were discontinued No signs of infection Atypical chest pain/Palpitations Palpitations Mild troponin elevation--likely demand Ischemia Sinus Tachycardia H/O Idiopathic pulmonary hypertension EKG showed sinus tachycardia, right atrial enlargement, nonspecific T wave abnormality. On Selexipag and Ambrisentan--continue Cardiology evaluated and changed patient's metoprolol tartarate to metoprolol succinate Patient can resume her home diuretics which she had been taking as needed She is to follow up with her E Business Project Manager who manages her PAH Abnormal thyroid function test H/O Central Hypothyroidism TSH < 0.010 Free T4 1.11 Endocrinology recommended to continue current dose of 112 mcg levothyroxine daily Follow-up with endocrinology as outpatient Chronic hypoxic respiratory failure with hypercapnia on 3 L at baseline Chronic cor pulmonale Idiopathic pulmonary arterial hypertension Restrictive lung disease BiPAP dependent Patient follows with [facility] pulmonary hypertension clinic She also follows pulmonary and sleep medicine in [place] Continue Letairis, Uptravi and Revatio Continue oxygen supplementation on 3L at baseline Patient's home BIPAP working well per RN/CM DM II A1C 6.7 Diet controlled Dermatomyositis chronic prednisone therapy HLD continue statin Total Time Total Time Spent Total Time Spent (In Minutes): 40 Total Time Includes: Examination of the Patient, Discharge Planning, Medication Reconciliation and Communication With Other Providers Discharge Plan Discharge Items Patient Disposition: Home - Home Health Services Reason For Visit: Nausea, vomiting Discharge Diagnosis: Nausea, vomiting Medication side effect Atypical chest pain Chronic respiratory failure with hypoxia Pulmonary hypertension Activity: Resume your previous activity Non-emergency contact: Primary Care Provider, E Business Project Manager and Assistant Plant Manager Call non-emergency contact if: you have any medication questions and your symptoms worsen Follow-up/Referrals: Willi Torres MD [Primary Care Provider] - (Date & Time 06/18/2023 12:00 PM Provider Willi Torres MD Department General Internal Medicine [facility] ) Diet: Heart Healthy Addtl Attending Provider Instructions: Ms Hans Mcclelland came to the hospital for persistent nausea, vomiting and abdominal pain. These are thought to be related to taking higher than prescribed dose of Uptravi in error. Symptoms have improved Your metoprolol tartarate was changed to metoprolol succinate by Cardiology Please ensure follow up with your Family Doctor, E Business Project Manager and Assistant Plant Manager. It was a pleasure taking care of you. Pending Studies at Discharge: No Stand-Alone Forms: My [facility], Smoking Cessation Medications and DC Order Prescriptions: New metoprolol succinate 25 mg Tablet Extended Release 24 Hr 25 mg PO BID 30 Days Qty: 60 0RF Continued atorvastatin 20 mg Tablet 20 mg PO QAM prednisone 5 mg Tablet 5 mg PO QAM spironolactone 25 mg Tablet 50 mg PO QAM docusate sodium [Colace] 100 mg Capsule 100 mg PO PM furosemide 20 mg Tablet 20 mg PO DAILY fluticasone propionate [Flonase Allergy Relief] 50 mcg/actuation [place],Suspension 2 spray INTRANASAL DAILY PRN (Reason: Nasal Congestion) loratadine 10 mg Tablet 10 mg PO QAM sildenafil (pulm.hypertension) [Revatio] 20 mg Tablet 40 mg PO TID diclofenac sodium [Voltaren] 1 % Gel 2 g TOPICAL QID PRN (Reason: joint pain) Vitron-C 65 mg iron- 125 mg Tablet,Delayed Release (Dr/Ec) 1 tab PO PM levothyroxine 112 mcg tablet 112 mcg PO DAILYBB ammonium lactate 12 % Lotion 1 applic TOPICAL BID ipratropium bromide 42 mcg (0.06 %) spray,non-aerosol 2 spray INTRANASAL BID ambrisentan [Letairis] 10 mg tablet 10 mg PO DAILY Uptravi 1,600 mcg tablet 1,600 mcg PO BID vibegron 75 mg Tablet 75 mg PO DAILY ondansetron 4 mg tablet,disintegrating 4 mg PO Q6H PRN (Reason: nausea and vomiting) Qty: 14 0RF Discontinued metoprolol tartrate 25 mg Tablet 25 mg PO BID Discharge Orders: Discharge Order (Routine); Ordered 06/14/23 Ordered By: Lucrecia Fierro/Other Patient Handouts: Managing Type 2 Diabetes Admission Data Admit Date/Time: 06/11/23 13:05 Attending Provider: Lucrecia Moreau I. Admit Provider: Chrissy Mak Primary Care Provider: Willi Torres Other Providers: Chrissy Mak; Yefri Reece; Warren Farrell; [facility],Home Healthcare Other Interventions: Discharge Summary Assessment (RN) Last Done: 06/14/23 13:27
--- NOTE | 2023-06-14 13:17 | Pulmonology Progress Note ---
Date of Service June 14, 2023 Assessment & Plan (1) Pulmonary hypertension: (2) Chronic respiratory failure with hypoxia: (3) Sleep apnea: (4) Difficult airway: Plan IMPRESSION: 58-year-old female with an unfortunate history of multifactorial pulmonary hypertension, obstructive sleep apnea, chronic respiratory failure with hypoxia, and morbid obesity who presents in the setting of complaints of chest discomfort with associated nausea, vomiting, and diarrhea. Pulmonary medicine consulted for patient's ongoing use of BiPAP. RECOMMENDATIONS: 1. Pulmonary hypertension -managed at [facility]. Appears stable and this does not appear to be the primary issue for which the patient was admitted to the hospital. Recommend continuing her pulmonary vasodilators and outpatient clinical follow-up at [facility]. If the patient were to deteriorate from a respiratory standpoint, would have a low threshold for transferring her to a tertiary facility as we are not equipped to handle decompensated right-sided heart failure associated with pulmonary hypertension. 2. Chronic respiratory failure with hypoxia - In the setting of #1. Continue with supplemental oxygen. Keep saturations at or above 90% given pulmonary hypertension 3. Sleep apnea - Continue with home BiPAP settings. Follow-up [place] [facility] 4. Difficult airway - Per history, the patient required emergent tracheostomy placement in the setting of intubation. Goals of care may be to address the patient's CODE STATUS as she would represent not only difficult airway based on anatomy, her hemodynamics would be extremely difficult given her significant pulmonary hypertension associated hemodynamics. Discussed with hospitalist and patient at bedside. She appears to be at her pulmonary baseline. Nothing to offer from a pulmonary standpoint going forward. Pulmonary will sign off. Feel free to contact us with questions or concerns Admission and Anticipated Discharge Date Admission Date: June 11, 2023 Subjective Patient seen and examined. EMR reviewed. Patient is seen at the bedside with her nasal pillows in place on BiPAP. She states she feels okay. She is not having any new or progressive respiratory issues. She is currently trying to tolerate food and see how she does. Her GI symptoms are stable. She has not had any palpitations, syncope or presyncope. Review of Systems 2 Review of Systems: All systems reviewed & are unremarkable except as noted in Subjective Physical Exam 2 Physical Exam: VITAL SIGNS - Vital signs and nursing notes were reviewed. GENERAL - 58-year-old female appearing her stated age who is in no acute distress. Communicates well with provider and answers questions appropriately. SKIN - Dry skin without rashes. NOSE - Midline and without cyanosis. MOUTH/OROPHARYNX - Without perioral cyanosis. NECK - Neck with FROM. LUNGS -kyphotic appearing. Auscultation reveals diminished breath sounds at the bases. No wheezes or rales noted. CARDIAC - RRR with S1/S2. No murmur, rubs, or gallops appreciated. ABDOMEN - Abdominal inspection demonstrates an obese abdomen. BS normoactive all four quadrants. No tenderness, palpable masses, or ascites noted. EXTREMITIES - Nail clubbing not present. No peripheral cyanosis. Mild pretibial edema present. +3/5 radial palpated throughout. PSYCH - A&Ox3 and cooperates fully with examiner. Pt is very pleasant and interacts well with examiner. Results & Data Results & Data Vital Signs (Past 12 Hours) Vital Signs Temp Pulse Pulse Resp BP Pulse Ox O2 Del Method 06/14/23 10:33 36.6 C 102 H 20 137/72 91 Nasal Cannula 06/14/23 09:00 Nasal Cannula 06/14/23 08:00 99 H 06/14/23 07:49 36.8 C 97 H 18 134/75 97 Room Air 06/14/23 03:00 36.8 C 105 H 22 137/65 94 Room Air O2 Flow Rate 06/14/23 10:33 3 06/14/23 09:00 3 06/14/23 08:00 06/14/23 07:49 06/14/23 03:00 Laboratory Results 06/14/23 06:14 06/14/23 06:14 Diagnostic Findings No new imaging PG Care Time/CCT Total # of Minutes Spent Total Time Spent with Patient: Total time spent is greater than 50% in coordination of care (as documented) at patient's floor/unit and/or counseling patient: Coding Level of Care Code 64824 SUB INP/OBS CARE 2/35MIN Diagnoses Pulmonary hypertension I27.20 Chronic respiratory failure with hypoxia J96.11 Sleep apnea G47.30 Difficult airway T88.4XXA
== END 2023-06-14 17:05 | disposition home health service (06) | DRG 392 ==
LOC: ED 10:08 → EDINP 13:05 → SUATTDRO 13:05 → 2S 14:02